=== PATIENT | male | born 1950 | race Caucasian/White ===

== ENCOUNTER 2016-09-15 13:08 | Emergency (ER) | payer MEDICARE, BC ==
[2016-09-15] MEDS ORDERED: SODIUM CHLORIDE 0.9% 1,000 ML IV STA (13:26)
[2016-09-15] MEDS ORDERED: RX INFO: IV CONTRAST WAS GIVEN 1 EACH MISC MISCELLANE PRN (13:26)
[2016-09-15] MEDS ORDERED: FAMOTIDINE 20 MG/2 ML VIAL IV STA (13:27)
[2016-09-15] MEDS ORDERED: diphenhydrAMINE 50 MG/ML 1 ML VIAL IVP STA (13:27)
[2016-09-15] MEDS ORDERED: methylPREDNISolone SOD SUCCI 125 MG/2 ML VIAL IV STA (13:27)
[2016-09-15 13:39] LABS: Basophils % (A) 0 %; CH 29.5; CHCM 32.7; Eosinophils # (A) 0.1 k/uL (0-0.7); Eosinophils % (A) 1 %; HCT 38.7 % (39.0-53.0); HDW 2.72; HGB 12.6 gm/dL (13.0-17.5); Luc # (Auto) 0.08; Luc % (Auto) 1; Lymphocytes # (A) 0.8 k/uL (1.0-4.8); Lymphocytes % (A) 8 %; MCH 29.6 pg (25.0-35.0); MCHC 32.7 g/dL (31.0-37.0); MCV 90.5 fL (80.0-100.0); Mean Platelet Volume 7.2; Monocytes # (A) 0.5 k/uL (0-1.0); Monocytes % (A) 5 %; Neutrophils # (A) 8.4 k/uL (1.3-7.7); Neutrophils % (A) 85 %; RBC 4.27 m/uL (4.30-5.90); WBC 9.9 k/uL (3.8-10.6); WBC (Perox) 9.92
[2016-09-15 13:43] LABS: Appearance,Urine Clear (Clear); Bilirubin,Urine Negative (Negative); Glucose,Urine (UA) 3+ (Negative); Ketones,Urine Negative (Negative); Leukocyte Esterase,Urine Negative (Negative); Nitrite,Urine Negative (Negative); Particle Count 279; Protein,Urine 1+ (Negative); RBC,Urine <1 /hpf (0-5); Specific Gravity,Urine 1.009 (1.001-1.035); Squamous Epithelial Cell,Urine <1 /hpf (0-4); UA Billing (MACRO vs. MICRO) MICRO; Urobilinogen,Urine <2.0 mg/dL (<2.0); WBC,Urine 1 /hpf (0-5)
--- NOTE | 2016-09-15 13:47 | ED ---
General Adult HPI - General Chief complaint: Abdominal Pain Stated complaint: Abdominal Pain Time Seen by Provider: 09/15/16 13:22 Source: patient, RN notes reviewed Mode of arrival: EMS Limitations: no limitations - History of Present Illness Initial comments: Patient is a pleasant 66-year-old male presenting to the emergency Department with abdominal discomfort. Patient has had mild symptoms for the past week. Patient has loss of appetite and mild nausea. Patient has not been eating much. Patient has had mild discomfort more so on the left side. Approximate one hour prior to arrival for get significantly worse. Discomfort is now tolerable following medication by EMS. No nausea vomiting. Patient was somewhat sweaty. No fevers. Discomfort was in the left abdomen but did radiate somewhat towards the back and up towards the chest. No chest discomfort at this time. Back discomfort is mild at this time. Abdominal discomfort is mild at this time. - Related Data Home Medications Medication Instructions Recorded Confirmed Allopurinol [Zyloprim] 100 mg PO DAILY 09/15/16 09/15/16 Ascorbic Acid [Vitamin C] 500 mg PO DAILY 09/15/16 09/15/16 Cholecalciferol [Vitamin D3] 1,000 unit PO BID 09/15/16 09/15/16 Docusaste 250mg 500 mg PO TID 09/15/16 09/15/16 Ferrous Sulfate [Feosol] 325 mg PO DAILY 09/15/16 09/15/16 HYDROcodone/APAP 10-325MG [[place] 1 tab PO HS 09/15/16 09/15/16 10-325] Lisinopril [Zestril] 10 mg PO DAILY 09/15/16 09/15/16 Magnesium Oxide [Mag-Ox] 500 mg PO DAILY 09/15/16 09/15/16 Metoprolol Tartrate [Lopressor] 100 mg PO BID 09/15/16 09/15/16 Niacin 500 mg PO BID 09/15/16 09/15/16 Pantoprazole [Protonix] 40 mg PO BID 09/15/16 09/15/16 Prazosin [Minipress] 2 mg PO HS 09/15/16 09/15/16 Sertraline [Zoloft] 150 mg PO DAILY 09/15/16 09/15/16 Simvastatin [Zocor] 20 mg PO HS 09/15/16 09/15/16 Sucralfate [Carafate] 1 gm PO DAILY 09/15/16 09/15/16 Vitamin B Complex 1 cap PO DAILY 09/15/16 09/15/16 amLODIPine [Norvasc] 10 mg PO DAILY 09/15/16 09/15/16 glipiZIDE [Glucotrol] 5 mg PO AC-BID 09/15/16 09/15/16 Allergies Allergy/AdvReac Type Severity Reaction Status Date / Time Iodinated Contrast Media - Allergy Rash/Hives Verified 09/15/16 13:41 Oral and Review of Systems ROS Statement: Those systems with pertinent positive or pertinent negative responses have been documented in the HPI. ROS Other: All systems not noted in ROS Statement are negative. Constitutional: Denies: fever, chills Eyes: Denies: eye pain ENT: Denies: ear pain Respiratory: Denies: cough Cardiovascular: Reports: chest pain Gastrointestinal: Reports: abdominal pain Genitourinary: Denies: dysuria Musculoskeletal: Reports: back pain Skin: Denies: rash Past Medical History Past Medical History: Diabetes Mellitus, Hypertension Additional Past Medical History / Comment(s): testicular cancer, glaucoma, peripheral neuropathy History of Any Multi-Drug Resistant Organisms: None Reported Additional Past Surgical History / Comment(s): left testicle removed, retroperitoneal lymph node resection x2, lymph node in left side of neck removed Past Psychological History: No Psychological Hx Reported Smoking Status: Current every day smoker Past Alcohol Use History: None Reported Past Drug Use History: None Reported General Exam Limitations: no limitations General appearance: alert, in no apparent distress Head exam: Present: atraumatic Eye exam: Present: normal appearance ENT exam: Present: normal oropharynx Neck exam: Present: normal inspection Respiratory exam: Present: normal lung sounds bilaterally. Absent: chest wall tenderness Cardiovascular Exam: Present: regular rate, normal rhythm Expanded Peripheral pulses: 2+: Radial (R), Radial (L), Dorsalis Pedis (R), Dorsalis Pedis (L) GI/Abdominal exam: Present: soft, tenderness (Left lower abdomen, mild), normal bowel sounds. Absent: distended, guarding, rebound, rigid, pulsatile mass Extremities exam: Present: normal inspection. Absent: pedal edema, calf tenderness Back exam: Present: CVA tenderness (L) (Mild tenderness below the left CVA) Neurological exam: Present: alert Psychiatric exam: Present: normal affect, normal mood Skin exam: Absent: rash Course Vital Signs 09/15/16 09/15/16 13:31 15:33 Temperature 96.9 F L 98.3 F Pulse Rate 62 59 L Respiratory 18 16 Rate Blood Pressure 186/90 159/74 O2 Sat by Pulse 100 100 Oximetry EKG Findings - EKG Comments: EKG Findings:: Sinus bradycardia, rate 53. Premature atrial complexes present. AL 196. QRS 98. QT 462. QTC 433. Normal axis. Normal QRS. Normal ST-T. Medical Decision Making - Medical Decision Making Patient reexamined and resting comfortably in bed. Patient still has discomfort however not as severe. Patient and family updated on results and concerns. Case was discussed in detail with Dr. Diaz, who will admit for a [facility] with surgical consult. Dr. Hector has been paged. - Lab Data Result diagrams: 09/15/16 13:24 09/15/16 13:24 Lab Results 09/15/16 09/15/16 09/15/16 Range/Units 13:24 13:24 13:24 WBC 9.9 (3.8-10.6) k/uL RBC 4.27 L (4.30-5.90) m/uL Hgb 12.6 L (13.0-17.5) gm/dL Hct 38.7 L (39.0-53.0) % MCV 90.5 (80.0-100.0) fL MCH 29.6 (25.0-35.0) pg MCHC 32.7 (31.0-37.0) g/dL RDW 15.0 (11.5-15.5) % Plt Count 156 (150-450) k/uL Neutrophils % 85 % Lymphocytes % 8 % Monocytes % 5 % Eosinophils % 1 % Basophils % 0 % Neutrophils # 8.4 H (1.3-7.7) k/uL Lymphocytes # 0.8 L (1.0-4.8) k/uL Monocytes # 0.5 (0-1.0) k/uL Eosinophils # 0.1 (0-0.7) k/uL Basophils # 0.0 (0-0.2) k/uL PT (9.0-12.0) sec INR (<1.1) APTT (22.0-30.0) sec Sodium 140 (137-145) mmol/L Potassium 4.8 (3.5-5.1) mmol/L Chloride 106 (98-107) mmol/L Carbon Dioxide 21 L (22-30) mmol/L Anion Gap 13 mmol/L BUN 26 H (9-20) mg/dL Creatinine 2.00 H (0.66-1.25) mg/dL Est GFR (MDRD) Af Amer 40 (>60 ml/min/1.73 sqM) Est GFR (MDRD) Non-Af 33 (>60 ml/min/1.73 sqM) Glucose 310 H (74-99) mg/dL Calcium 9.0 (8.4-10.2) mg/dL Total Bilirubin 0.4 (0.2-1.3) mg/dL AST 15 L (17-59) U/L ALT 23 (21-72) U/L Alkaline Phosphatase 85 (38-126) U/L Total Creatine Kinase 37 L (55-170) U/L CK-MB (CK-2) 0.4 (0.0-2.4) ng/mL CK-MB (CK-2) Rel Index 1.1 Troponin I <0.012 (0.000-0.034) ng/mL Total Protein 6.7 (6.3-8.2) g/dL Albumin 3.8 (3.5-5.0) g/dL Amylase 89 (30-110) U/L Lipase 194 (23-300) U/L Urine Color Urine Appearance (Clear) Urine pH (5.0-8.0) Ur Specific [place] (1.001-1.035) Urine Protein (Negative) Urine Glucose (UA) (Negative) Urine Ketones (Negative) Urine Blood (Negative) Urine Nitrate (Negative) Urine Bilirubin (Negative) Urine Urobilinogen (<2.0) mg/dL Ur Leukocyte Esterase (Negative) Urine RBC (0-5) /hpf Urine WBC (0-5) /hpf Ur Squamous Epith Cells (0-4) /hpf 09/15/16 09/15/16 Range/Units 13:24 13:24 WBC (3.8-10.6) k/uL RBC (4.30-5.90) m/uL Hgb (13.0-17.5) gm/dL Hct (39.0-53.0) % MCV (80.0-100.0) fL MCH (25.0-35.0) pg MCHC (31.0-37.0) g/dL RDW (11.5-15.5) % Plt Count (150-450) k/uL Neutrophils % % Lymphocytes % % Monocytes % % Eosinophils % % Basophils % % Neutrophils # (1.3-7.7) k/uL Lymphocytes # (1.0-4.8) k/uL Monocytes # (0-1.0) k/uL Eosinophils # (0-0.7) k/uL Basophils # (0-0.2) k/uL PT 10.1 (9.0-12.0) sec INR 1.0 (<1.1) APTT 22.6 (22.0-30.0) sec Sodium (137-145) mmol/L Potassium (3.5-5.1) mmol/L Chloride (98-107) mmol/L Carbon Dioxide (22-30) mmol/L Anion Gap mmol/L BUN (9-20) mg/dL Creatinine (0.66-1.25) mg/dL Est GFR (MDRD) Af Amer (>60 ml/min/1.73 sqM) Est GFR (MDRD) Non-Af (>60 ml/min/1.73 sqM) Glucose (74-99) mg/dL Calcium (8.4-10.2) mg/dL Total Bilirubin (0.2-1.3) mg/dL AST (17-59) U/L ALT (21-72) U/L Alkaline Phosphatase (38-126) U/L Total Creatine Kinase (55-170) U/L CK-MB (CK-2) (0.0-2.4) ng/mL CK-MB (CK-2) Rel Index Troponin I (0.000-0.034) ng/mL Total Protein (6.3-8.2) g/dL Albumin (3.5-5.0) g/dL Amylase (30-110) U/L Lipase (23-300) U/L Urine Color Light Yellow Urine Appearance Clear (Clear) Urine pH 7.0 (5.0-8.0) Ur Specific [place] 1.009 (1.001-1.035) Urine Protein 1+ H (Negative) Urine Glucose (UA) 3+ H (Negative) Urine Ketones Negative (Negative) Urine Blood Negative (Negative) Urine Nitrate Negative (Negative) Urine Bilirubin Negative (Negative) Urine Urobilinogen <2.0 (<2.0) mg/dL Ur Leukocyte Esterase Negative (Negative) Urine RBC <1 (0-5) /hpf Urine WBC 1 (0-5) /hpf Ur Squamous Epith Cells <1 (0-4) /hpf - Radiology Data Radiology results: image reviewed (Chest x-ray shows no acute process. Computed tomography scan abdomen and pelvis shows large. Aortic retroperitoneal mass up to 16 cm. Some initial soft tissue nodularity of to 8 cm.) Disposition Clinical Impression: Abdominal mass Disposition: ADMITTED IP TO THIS HOSP
[2016-09-15 13:50] LABS: Partial Thromboplastin Time 22.6 sec (22.0-30.0); Prothrombin Time 10.1 sec (9.0-12.0)
[2016-09-15 13:53] LABS: Potassium 4.8 mmol/L (3.5-5.1); Total Bilirubin 0.4 mg/dL (0.2-1.3); Total Protein 6.7 g/dL (6.3-8.2)
[2016-09-15 14:01] LABS: Creatine Kinase 37 U/L (55-170)
[2016-09-15 14:13] LABS: Creatine Kinase MB 0.4 ng/mL (0.0-2.4); Troponin I <0.012 ng/mL (0.000-0.034)
--- NOTE | 2016-09-15 15:05 | XR ---
EXAMINATION TYPE: XR chest 2V DATE OF EXAM: 09/15/2016 3:01 PM COMPARISON: NONE HISTORY: Shortness of breath TECHNIQUE: Frontal and lateral views of the chest are obtained. FINDINGS: Scattered senescent parenchymal changes noted. Hyperinflation compatible with COPD. No evidence for infiltrate. No evidence for atelectasis. Heart size is stable. Mediastinal structures are stable and grossly unremarkable. No evidence for hilar prominence. Degenerative changes dorsal spine. IMPRESSION: 1. No evidence for acute pulmonary disease.
--- NOTE | 2016-09-15 15:08 | CT ---
EXAMINATION TYPE: CT abdomen pelvis wo con DATE OF EXAM: 09/15/2016 2:37 PM COMPARISON: NONE HISTORY: 66-year-old male LUQ pain CT DLP: 1069 mGycm. Automated exposure control for dose reduction was used. TECHNIQUE: Contiguous axial scanning of the abdomen and pelvis without IV contrast. Coronal and sagit bronson reconstructions performed. FINDINGS: Heart is normal size without pericardial effusion. Coronary vessel calcifications are present and are remarkable for coronary artery disease. Some strandy atelectasis or scarring at the left base. Calcified granuloma in the right middle lobe. Noncontrast appearance of the liver, gallbladder, spleen with tiny anterior splenule, and pancreas gr ossly unremarkable. Scattered hypodense lesions within the right kidney measuring up to 1.5 cm are indeterminate. One of these lesions appears relatively hyperdense measuring 7 mm. There is marked mass effect onto the left kidney which is displaced towards the left and flattened ag ainst the spleen with its vascular pedicle stretched anteriorly. Hypodense lesions within the left ki dney are indeterminate measuring up to 1.9 cm. There is additional mass effect onto the pancreatic tail and gastric fundus/proximal body which are b oth displaced anteriorly. Multiple surgical clips along the retroperitoneum. Along the left para-aortic retroperitoneum, there is a very large heterogeneous mass containing some internal calcifications measuring up to 16.1 cm AP by 11.8 cm wide by 15.3 cm craniocaudal. Difficult to clearly delineate the fat plane with the adjacent psoas major muscle. Additional abnormal soft ti ssue nodularity within an aggregate dimension of 8.1 cm AP by 6.5 cm wide (coronal image 60) is noted along the superior aspect of the mass in the subphrenic region. No dilated small bowel, free fluid, or free air. No mesenteric or retroperitoneal lymphadenopathy see n. Mild to moderate stool burden with sigmoid diverticulosis but no evidence for acute diverticulitis. There are moderate atherosclerotic calcifications throughout the abdominal aorta. Bladder is urine distended. Asymmetric enlargement of the right seminal vesicle of questionable clini dax significance. Prostate mildly prominent at 4.6 cm wide. Prominent stool distending the rectum up to 7.4 cm. No abnormal fluid collection in the pelvis or pelvic lymphadenopathy. Bones: Degenerative changes mid to lower lumbar spine. No osseous destructive process seen. IMPRESSION: 1. 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 THIS CAUSES MASS EFFECT ONTO THE LEFT KIDNEY, PANCREATIC TAIL, A ND GASTRIC FUNDUS/PROXIMAL BODY AND STRETCHES THE LEFT RENAL VASCULAR PEDICLE ANTERIORLY. SOME ADDITI ONAL SOFT TISSUE NODULARITY MEASURING UP TO 8.1 CM SUPERIOR TO THE MASS LIKELY RELATES TO THE SAME MT OCESS. 2. SOME DIFFERENTIAL CONSIDERATIONS INCLUDE ADRENAL CORTICAL CARCINOMA, METASTATIC DISEASE, AND RETRO PERITONEAL SARCOMA. GIVEN THE PATIENT'S SURGICAL CLIPS ALONG THE RETROPERITONEUM, CORRELATE FOR ANY K NOWN DIAGNOSIS. 3. SIGMOID DIVERTICULOSIS WITHOUT ACUTE DIVERTICULITIS. 4. HYPODENSE LESIONS IN BOTH KIDNEYS MEASURE UP TO 1.9 CM AND ARE INDETERMINATE ON NONCONTRAST CT BUT PROBABLY REPRESENT CYSTS.
[2016-09-15] MEDS ORDERED: ONDANSETRON 4 MG/2 ML VIAL IVP PRN (15:52)
[2016-09-15] MEDS ORDERED: NALOXONE 0.4 MG/ML 1 ML VIAL IV PRN (15:52)
[2016-09-15] MEDS ORDERED: MORPHINE SULFATE 4 MG/ML SYRINGE IV PRN (15:52)
[2016-09-15] MEDS ORDERED: SODIUM CHLORIDE 0.9% 1,000 ML IV SCH (16:00)
--- NOTE | 2016-09-15 17:23 | ED ---
Medical Decision Making - Medical Decision Making Dr. Hector did come evaluate the patient in the emergency department and does recommend transfer to [facility]. Patient and family are aware of this and agreeable. Case was discussed in detail with Dr. Anders, who will accept transfer. - Lab Data Result diagrams: 09/15/16 13:24 09/15/16 13:24 Lab Results 09/15/16 09/15/16 09/15/16 Range/Units 13:24 13:24 13:24 WBC 9.9 (3.8-10.6) k/uL RBC 4.27 L (4.30-5.90) m/uL Hgb 12.6 L (13.0-17.5) gm/dL Hct 38.7 L (39.0-53.0) % MCV 90.5 (80.0-100.0) fL MCH 29.6 (25.0-35.0) pg MCHC 32.7 (31.0-37.0) g/dL RDW 15.0 (11.5-15.5) % Plt Count 156 (150-450) k/uL Neutrophils % 85 % Lymphocytes % 8 % Monocytes % 5 % Eosinophils % 1 % Basophils % 0 % Neutrophils # 8.4 H (1.3-7.7) k/uL Lymphocytes # 0.8 L (1.0-4.8) k/uL Monocytes # 0.5 (0-1.0) k/uL Eosinophils # 0.1 (0-0.7) k/uL Basophils # 0.0 (0-0.2) k/uL PT (9.0-12.0) sec INR (<1.1) APTT (22.0-30.0) sec Sodium 140 (137-145) mmol/L Potassium 4.8 (3.5-5.1) mmol/L Chloride 106 (98-107) mmol/L Carbon Dioxide 21 L (22-30) mmol/L Anion Gap 13 mmol/L BUN 26 H (9-20) mg/dL Creatinine 2.00 H (0.66-1.25) mg/dL Est GFR (MDRD) Af Amer 40 (>60 ml/min/1.73 sqM) Est GFR (MDRD) Non-Af 33 (>60 ml/min/1.73 sqM) Glucose 310 H (74-99) mg/dL Calcium 9.0 (8.4-10.2) mg/dL Total Bilirubin 0.4 (0.2-1.3) mg/dL AST 15 L (17-59) U/L ALT 23 (21-72) U/L Alkaline Phosphatase 85 (38-126) U/L Total Creatine Kinase 37 L (55-170) U/L CK-MB (CK-2) 0.4 (0.0-2.4) ng/mL CK-MB (CK-2) Rel Index 1.1 Troponin I <0.012 (0.000-0.034) ng/mL Total Protein 6.7 (6.3-8.2) g/dL Albumin 3.8 (3.5-5.0) g/dL Amylase 89 (30-110) U/L Lipase 194 (23-300) U/L Urine Color Urine Appearance (Clear) Urine pH (5.0-8.0) Ur Specific [place] (1.001-1.035) Urine Protein (Negative) Urine Glucose (UA) (Negative) Urine Ketones (Negative) Urine Blood (Negative) Urine Nitrate (Negative) Urine Bilirubin (Negative) Urine Urobilinogen (<2.0) mg/dL Ur Leukocyte Esterase (Negative) Urine RBC (0-5) /hpf Urine WBC (0-5) /hpf Ur Squamous Epith Cells (0-4) /hpf 09/15/16 09/15/16 Range/Units 13:24 13:24 WBC (3.8-10.6) k/uL RBC (4.30-5.90) m/uL Hgb (13.0-17.5) gm/dL Hct (39.0-53.0) % MCV (80.0-100.0) fL MCH (25.0-35.0) pg MCHC (31.0-37.0) g/dL RDW (11.5-15.5) % Plt Count (150-450) k/uL Neutrophils % % Lymphocytes % % Monocytes % % Eosinophils % % Basophils % % Neutrophils # (1.3-7.7) k/uL Lymphocytes # (1.0-4.8) k/uL Monocytes # (0-1.0) k/uL Eosinophils # (0-0.7) k/uL Basophils # (0-0.2) k/uL PT 10.1 (9.0-12.0) sec INR 1.0 (<1.1) APTT 22.6 (22.0-30.0) sec Sodium (137-145) mmol/L Potassium (3.5-5.1) mmol/L Chloride (98-107) mmol/L Carbon Dioxide (22-30) mmol/L Anion Gap mmol/L BUN (9-20) mg/dL Creatinine (0.66-1.25) mg/dL Est GFR (MDRD) Af Amer (>60 ml/min/1.73 sqM) Est GFR (MDRD) Non-Af (>60 ml/min/1.73 sqM) Glucose (74-99) mg/dL Calcium (8.4-10.2) mg/dL Total Bilirubin (0.2-1.3) mg/dL AST (17-59) U/L ALT (21-72) U/L Alkaline Phosphatase (38-126) U/L Total Creatine Kinase (55-170) U/L CK-MB (CK-2) (0.0-2.4) ng/mL CK-MB (CK-2) Rel Index Troponin I (0.000-0.034) ng/mL Total Protein (6.3-8.2) g/dL Albumin (3.5-5.0) g/dL Amylase (30-110) U/L Lipase (23-300) U/L Urine Color Light Yellow Urine Appearance Clear (Clear) Urine pH 7.0 (5.0-8.0) Ur Specific [place] 1.009 (1.001-1.035) Urine Protein 1+ H (Negative) Urine Glucose (UA) 3+ H (Negative) Urine Ketones Negative (Negative) Urine Blood Negative (Negative) Urine Nitrate Negative (Negative) Urine Bilirubin Negative (Negative) Urine Urobilinogen <2.0 (<2.0) mg/dL Ur Leukocyte Esterase Negative (Negative) Urine RBC <1 (0-5) /hpf Urine WBC 1 (0-5) /hpf Ur Squamous Epith Cells <1 (0-4) /hpf Disposition Clinical Impression: Abdominal mass Disposition: OTHER INSTITUTION NOT DEFINED - Out of Hospital Transfer - Req. Specs Out of Hospital Transfer - Requested Specifics: Other Emergency Center ( Surgical admission at [facility])
--- NOTE | 2016-09-15 19:01 | P.GSCN ---
History of Present Illness Consult date: 09/15/16 Reason for Consult: Abdominal mass History of present illness: Patient is a 66-year-old male who presented with chest discomfort with fevers and fevers and diaphoresis. Due to the shaking and chest discomfort he came to the emergency room believing that he had a heart attack. The pain was then shifted down to the abdomen the left flank was more severe and better by sitting up made worse by lying down. Pain medication helped as well. There was no nausea no vomiting or diarrhea no constipation and hematochezia hematemesis or melena. The patient is a diabetic and has had a previous history of 2 operations for recurrent testicular cancer. This included a retroperitoneal dissection and 1 sitting. Patient does not have any other paraneoplastic symptoms. Genitourinary complaints at this time. Review of Systems - Constitutional Reports anorexia, Reports chills, Reports fever, Reports malaise, Reports night sweats - EENT Ears, nose, mouth and throat: Denies dysphagia - Cardiovascular Reports chest pain, Reports palpitations, Denies edema, Denies shortness of breath - Respiratory Denies cough, Denies 7 - Gastrointestinal Reports as per HPI - Integumentary Denies rash, Denies unusual bruising - Psychiatric Denies anhedonia, Denies anxiety, Denies anxiety attacks - Endocrine Denies cold intolerance, Denies fatigue - Hematologic/Lymphatic Denies easy bleeding, Denies easy bruising Past Medical History Past Medical History: Diabetes Mellitus, Hypertension Additional Past Medical History / Comment(s): testicular cancer, glaucoma, peripheral neuropathy History of Any Multi-Drug Resistant Organisms: None Reported Additional Past Surgical History / Comment(s): left testicle removed, retroperitoneal lymph node resection x2, lymph node in left side of neck removed Past Psychological History: No Psychological Hx Reported Smoking Status: Current every day smoker Past Alcohol Use History: None Reported Past Drug Use History: None Reported Medications and Allergies Home Medications Medication Instructions Recorded Confirmed Type Allopurinol [Zyloprim] 100 mg PO DAILY 09/15/16 09/15/16 History Ascorbic Acid [Vitamin C] 500 mg PO DAILY 09/15/16 09/15/16 History Cholecalciferol [Vitamin D3] 1,000 unit PO BID 09/15/16 09/15/16 History Docusaste 250mg 500 mg PO TID 09/15/16 09/15/16 History Ferrous Sulfate [Feosol] 325 mg PO DAILY 09/15/16 09/15/16 History HYDROcodone/APAP 10-325MG [[place] 1 tab PO HS 09/15/16 09/15/16 History 10-325] Lisinopril [Zestril] 10 mg PO DAILY 09/15/16 09/15/16 History Magnesium Oxide [Mag-Ox] 500 mg PO DAILY 09/15/16 09/15/16 History Metoprolol Tartrate [Lopressor] 100 mg PO BID 09/15/16 09/15/16 History Niacin 500 mg PO BID 09/15/16 09/15/16 History Pantoprazole [Protonix] 40 mg PO BID 09/15/16 09/15/16 History Prazosin [Minipress] 2 mg PO HS 09/15/16 09/15/16 History Sertraline [Zoloft] 150 mg PO DAILY 09/15/16 09/15/16 History Simvastatin [Zocor] 20 mg PO HS 09/15/16 09/15/16 History Sucralfate [Carafate] 1 gm PO DAILY 09/15/16 09/15/16 History Vitamin B Complex 1 cap PO DAILY 09/15/16 09/15/16 History amLODIPine [Norvasc] 10 mg PO DAILY 09/15/16 09/15/16 History glipiZIDE [Glucotrol] 5 mg PO AC-BID 09/15/16 09/15/16 History Allergies Allergy/AdvReac Type Severity Reaction Status Date / Time Iodinated Contrast Media - Allergy Rash/Hives Verified 09/15/16 13:41 Oral and Surgical - Exam Vital Signs Temp Pulse Resp BP Pulse Ox 96.9 F L 62 18 186/90 100 09/15/16 13:31 09/15/16 13:31 09/15/16 13:31 09/15/16 13:31 09/15/16 13:31 - General well nourished - Eyes normal ocular movement, pale, no icteric - ENT normal pinna, normal nares - Neck no venous distension - Respiratory normal expansion, normal respiratory effort - Cardiovascular Rhythm: regular - Abdomen Abdomen: soft, non tender, surgical scars, no guarding, no rigid - Psychiatric oriented to time, oriented to person, oriented to place, speech is normal, memory intact Results - Labs 09/15/16 13:24 09/15/16 13:24 Abnormal Lab Results - Last 24 Hours (Table) 09/15/16 09/15/16 09/15/16 Range/Units 13:24 13:24 13:24 RBC 4.27 L (4.30-5.90) m/uL Hgb 12.6 L (13.0-17.5) gm/dL Hct 38.7 L (39.0-53.0) % Neutrophils # 8.4 H (1.3-7.7) k/uL Lymphocytes # 0.8 L (1.0-4.8) k/uL Carbon Dioxide 21 L (22-30) mmol/L BUN 26 H (9-20) mg/dL Creatinine 2.00 H (0.66-1.25) mg/dL Glucose 310 H (74-99) mg/dL AST 15 L (17-59) U/L Total Creatine Kinase 37 L (55-170) U/L Urine Protein (Negative) Urine Glucose (UA) (Negative) 09/15/16 Range/Units 13:24 RBC (4.30-5.90) m/uL Hgb (13.0-17.5) gm/dL Hct (39.0-53.0) % Neutrophils # (1.3-7.7) k/uL Lymphocytes # (1.0-4.8) k/uL Carbon Dioxide (22-30) mmol/L BUN (9-20) mg/dL Creatinine (0.66-1.25) mg/dL Glucose (74-99) mg/dL AST (17-59) U/L Total Creatine Kinase (55-170) U/L Urine Protein 1+ H (Negative) Urine Glucose (UA) 3+ H (Negative) Diabetes panel 09/15/16 Range/Units 13:24 Sodium 140 (137-145) mmol/L Potassium 4.8 (3.5-5.1) mmol/L Chloride 106 (98-107) mmol/L Carbon Dioxide 21 L (22-30) mmol/L BUN 26 H (9-20) mg/dL Creatinine 2.00 H (0.66-1.25) mg/dL Glucose 310 H (74-99) mg/dL Calcium 9.0 (8.4-10.2) mg/dL AST 15 L (17-59) U/L ALT 23 (21-72) U/L Alkaline Phosphatase 85 (38-126) U/L Total Protein 6.7 (6.3-8.2) g/dL Albumin 3.8 (3.5-5.0) g/dL Calcium panel 09/15/16 Range/Units 13:24 Calcium 9.0 (8.4-10.2) mg/dL Albumin 3.8 (3.5-5.0) g/dL Pituitary panel 09/15/16 Range/Units 13:24 Sodium 140 (137-145) mmol/L Potassium 4.8 (3.5-5.1) mmol/L Chloride 106 (98-107) mmol/L Carbon Dioxide 21 L (22-30) mmol/L BUN 26 H (9-20) mg/dL Creatinine 2.00 H (0.66-1.25) mg/dL Glucose 310 H (74-99) mg/dL Calcium 9.0 (8.4-10.2) mg/dL Adrenal panel 09/15/16 Range/Units 13:24 Sodium 140 (137-145) mmol/L Potassium 4.8 (3.5-5.1) mmol/L Chloride 106 (98-107) mmol/L Carbon Dioxide 21 L (22-30) mmol/L BUN 26 H (9-20) mg/dL Creatinine 2.00 H (0.66-1.25) mg/dL Glucose 310 H (74-99) mg/dL Calcium 9.0 (8.4-10.2) mg/dL Total Bilirubin 0.4 (0.2-1.3) mg/dL AST 15 L (17-59) U/L ALT 23 (21-72) U/L Alkaline Phosphatase 85 (38-126) U/L Total Protein 6.7 (6.3-8.2) g/dL Albumin 3.8 (3.5-5.0) g/dL - Imaging Additional studies: Computed tomography scan of the abdomen and the pelvis revealed a large paravertebral mass which was causing pressure symptoms on the kidneys as well as the pancreas. It lies between the vena cava and the left kidney stretching the patient will anterior to it. Assessment and Plan (1) Diabetes type 2, uncontrolled Status: Acute (2) Renal insufficiency Status: Acute (3) History of testicular cancer Status: Acute Plan: Patient is a very pleasant gentleman who has had his. He's had 2 previous surgeries including retroperitoneal sections. He has been symptom-free for a long time. He presented today with abdominal pain. Along with that his blood sugars were elevated at 300 and he has mild renal insufficiency with creatinine elevated at 2. Probably related to dehydration alone. On the patient's primary problem is pain in the left flank. Is explained by the presence of this large mass. Differential for this included adrenal cortical carcinoma, recurrence of the previous testicular cancer, and the retroperitoneal sarcoma. This is very large and due to the significant symptoms requires urgent evaluation. I do not perform this kind of surgery for evaluation. I recommended the patient be transferred to a tertiary care center where urological oncology and surgical oncology to evaluate the patient for possible removal of the retroperitoneal mass. The patient understands not had a detailed discussion with the patient and the son. The patient she'll be transferred to [facility] in [place] for further evaluation thank you
[2016-09-15 19:04] VITALS: BP 170/87; PULSE 62; RESP 16; TEMP 98.5
[2016-09-16] MEDS ORDERED: PANTOPRAZOLE 40 MG/10 ML VIAL IV SCH (09:00)
== END 2016-09-15 19:15 | disposition other institution (70) ==
LOC: EC 13:08 → UNDOADMIN 15:52 → 5MS5E 15:52 → 5ONC 17:12 → EC 19:15
DX: R19.09 Other intra-abdominal and pelvic swelling, mass and lump (principal); K57.30 Diverticulosis of large intestine without perforation or abscess without bleeding; E11.65 Type 2 diabetes mellitus with hyperglycemia; N28.9 Disorder of kidney and ureter, unspecified; I10 Essential (primary) hypertension; G62.9 Polyneuropathy, unspecified; F17.200 Nicotine dependence, unspecified, uncomplicated; Z79.84 Long term (current) use of oral hypoglycemic drugs; Z91.041 Radiographic dye allergy status; Z85.47 Personal history of malignant neoplasm of testis; Z79.899 Other long term (current) drug therapy
CPT/HCPCS: 99285; 96374; 96375 ×3; 96361 ×6; 36415; 93005; 80053; 82150; 82550; 82553; 83690; 84484; 85025; 85610; 85730; 81001; 71020; 74176; J2270; J1200; J2930

== ENCOUNTER → 2016-10-24 | Outpatient (CLI) | payer MEDICARE, BC ==
--- NOTE | 2016-10-24 15:29 | CT ---
EXAMINATION TYPE: CT chest wo con DATE OF EXAM: 10/24/2016 3:03 PM COMPARISON: NONE HISTORY: Patient has history of known abdominal liposarcoma. Patient is presurgical, looking for met s. CT DLP: 421.9 mGycm Automated exposure control for dose reduction was used. FINDINGS: Lungs: Subsegmental changes posteriorly are most typical of atelectasis. There are no sizable suspici ous pulmonary nodules. There is a subpleural nodule on image 42 in the right lower lobe superior segm ent measuring 2 mm. Calcified granuloma within the anterior segment of the right upper lobe is also n oted. Bleb is seen in the right lower lobe and there is mild basilar bronchiectasis. Subsegmental changes i nvolving the anterior segment of the left upper lobe laterally most typical of atelectasis. Osseous structures: There is evidence of multilevel degenerative disc disease and hypertrophic change s. No destructive or blastic changes seen. Mediastinum: Lack of contrast limits exam for adenopathy. Grossly no pathologic adenopathy suspected. Cardiomegaly and coronary artery calcification noted. There is atherosclerotic change aorta. Other: There is a large retroperitoneal soft tissue mass measuring 17 cm in AP dimension with interna l calcification likely corresponding to the patient's history of malignancy. IMPRESSION: 1. No diagnostic evidence of pulmonary metastasis. There is a subpleural nodule image 41 within the r ight lower lobe measuring 2 mm too small to characterize but likely postinflammatory. 2. Granuloma in the right upper lobe 3. Large retroperitoneal 17 cm mass. Provided history is liposarcoma. Given the patient's history of previous testicular cancer metastatic disease as well as retroperitoneal sarcoma or adrenal cortical carcinoma in the differential.
== END | disposition home or self-care (01) ==
LOC: RADCTMAIN 14:40
PROVIDERS: ATTEND Surgery
DX: C49.9 Malignant neoplasm of connective and soft tissue, unspecified (principal); J84.10 Pulmonary fibrosis, unspecified
CPT/HCPCS: 71250

== ENCOUNTER 2017-01-11 14:54 | Emergency (ER) | payer MEDICARE, BC ==
[2017-01-11 15:06] VITALS: RESP 18
--- NOTE | 2017-01-11 15:14 | ED ---
Abdominal Pain HPI - General Chief Complaint: Abdominal Pain Stated Complaint: Abd pain Time Seen by Provider: 01/11/17 15:04 Source: patient, EMS, RN notes reviewed Mode of arrival: EMS Limitations: no limitations - History of Present Illness Initial Comments: This a 66-year-old male presents emergency department via EMS chief complaint abdominal pain. Patient's been having increase abdominal plain no left lower quadrant. Patient states that he had a 6 pound lipocarcinoma tumor removed at [facility] in November. Patient called the surgeon advised him emergency department. Patient has not seen his surgeon for his increasing pain. Patient does admit to decreased appetite. Patient had some nausea no diarrhea no constipation. Patient states that he has not started any chemotherapy or radiation. Patient denies having a PET scan at this time. Patient's surgeon is Dr. Bay - Related Data Home Medications Medication Instructions Recorded Confirmed Allopurinol [Zyloprim] 100 mg PO DAILY 09/15/16 01/11/17 Ascorbic Acid [Vitamin C] 1,000 mg PO DAILY 09/15/16 01/11/17 Cholecalciferol [Vitamin D3] 1,000 unit PO BID 09/15/16 01/11/17 Docusaste 250mg 250 mg PO DAILY 09/15/16 01/11/17 Ferrous Sulfate [Feosol] 325 mg PO DAILY 09/15/16 01/11/17 Metoprolol Tartrate [Lopressor] 100 mg PO BID 09/15/16 01/11/17 Niacin 500 mg PO BID 09/15/16 01/11/17 Pantoprazole [Protonix] 40 mg PO DAILY 09/15/16 01/11/17 Prazosin [Minipress] 2 mg PO HS 09/15/16 01/11/17 Sertraline [Zoloft] 150 mg PO DAILY 09/15/16 01/11/17 Sucralfate [Carafate] 1 gm PO QID 09/15/16 01/11/17 Vitamin B Complex 1 cap PO DAILY 09/15/16 01/11/17 amLODIPine [Norvasc] 10 mg PO DAILY 09/15/16 01/11/17 glipiZIDE [Glucotrol] 5 mg PO AC-BID 09/15/16 01/11/17 HYDROcodone/APAP [[place] Elixir 10 ml PO Q4HR PRN 01/11/17 01/11/17 7.5-325Mg/15Ml] Insulin Glargine [Lantus] 25 unit SQ HS 01/11/17 01/11/17 Magnesium Oxide [Mag-Ox] 400 mg PO DAILY 01/11/17 01/11/17 Simvastatin [Zocor] 20 mg PO HS 01/11/17 01/11/17 Previous Rx's Medication Instructions Recorded oxyCODONE-APAP 7.5-325MG [Percocet 1 tab PO Q6HR PRN #30 tab 01/11/17 7.5-325 mg] Allergies Allergy/AdvReac Type Severity Reaction Status Date / Time Iodinated Contrast Media - Allergy Rash/Hives Verified 01/11/17 15:19 Oral and Review of Systems ROS Statement: Those systems with pertinent positive or pertinent negative responses have been documented in the HPI. ROS Other: All systems not noted in ROS Statement are negative. Past Medical History Past Medical History: Diabetes Mellitus, Hypertension Additional Past Medical History / Comment(s): testicular cancer, glaucoma, peripheral neuropathy, tumor on left kidney 12/01 - removed at [facility] ( liposarcoma) History of Any Multi-Drug Resistant Organisms: None Reported Additional Past Surgical History / Comment(s): left testicle removed, retroperitoneal lymph node resection x2, lymph node in left side of neck removed , left kidney removed Past Psychological History: No Psychological Hx Reported Smoking Status: Former smoker Past Alcohol Use History: None Reported Past Drug Use History: None Reported General Exam Limitations: no limitations General appearance: alert, in no apparent distress Head exam: Present: atraumatic, normocephalic, normal inspection Respiratory exam: Present: normal lung sounds bilaterally. Absent: respiratory distress, wheezes, rales, rhonchi, stridor Cardiovascular Exam: Present: regular rate, normal rhythm, normal heart sounds. Absent: systolic murmur, diastolic murmur, rubs, gallop, clicks GI/Abdominal exam: Present: soft, tenderness (Moderate left lower quadrant abdominal tenderness), normal bowel sounds. Absent: distended, guarding, rebound, rigid Back exam: Absent: CVA tenderness (R), CVA tenderness (L) Neurological exam: Present: alert, oriented X3, CN II-XII intact Skin exam: Present: warm, dry, intact, normal color. Absent: rash Course Vital Signs 01/11/17 15:02 Temperature 98 F Pulse Rate 91 Respiratory 18 Rate Blood Pressure 130/81 O2 Sat by Pulse 99 Oximetry Medical Decision Making - Medical Decision Making 58-year-old male presented to emergency room for increased pain status post surgery. There is no evidence of acute infection at this time. Patient has new acute findings including destruction of T12, L2 new mass findings. I did contact his surgeon Dr. Bay at [facility] states there is nothing emergent at this time though they will contact him for follow-up appointment. He did request that we give the patient analgesics at home. Patient also has appointment scheduled next week for oncologist. - Lab Data Result diagrams: 01/11/17 15:12 01/11/17 15:12 Lab Results 01/11/17 01/11/17 01/11/17 Range/Units 15:12 15:12 15:12 WBC 4.4 (3.8-10.6) k/uL RBC 3.80 L (4.30-5.90) m/uL Hgb 11.0 L (13.0-17.5) gm/dL Hct 32.6 L (39.0-53.0) % MCV 85.8 (80.0-100.0) fL MCH 28.8 (25.0-35.0) pg MCHC 33.6 (31.0-37.0) g/dL RDW 14.8 (11.5-15.5) % Plt Count 115 L (150-450) k/uL Neutrophils % 78 % Lymphocytes % 12 % Monocytes % 8 % Eosinophils % 1 % Basophils % 0 % Neutrophils # 3.4 (1.3-7.7) k/uL Lymphocytes # 0.5 L (1.0-4.8) k/uL Monocytes # 0.3 (0-1.0) k/uL Eosinophils # 0.1 (0-0.7) k/uL Basophils # 0.0 (0-0.2) k/uL Hypochromasia Slight PT (9.0-12.0) sec INR (<1.1) APTT (22.0-30.0) sec Sodium 139 (137-145) mmol/L Potassium 4.5 (3.5-5.1) mmol/L Chloride 107 (98-107) mmol/L Carbon Dioxide 21 L (22-30) mmol/L Anion Gap 11 mmol/L BUN 40 H (9-20) mg/dL Creatinine 2.02 H (0.66-1.25) mg/dL Est GFR (MDRD) Af Amer 40 (>60 ml/min/1.73 sqM) Est GFR (MDRD) Non-Af 33 (>60 ml/min/1.73 sqM) Glucose 173 H (74-99) mg/dL Plasma Lactic Acid Dez 1.1 (0.7-2.0) mmol/L Calcium 9.3 (8.4-10.2) mg/dL Total Bilirubin 0.6 (0.2-1.3) mg/dL AST 19 (17-59) U/L ALT 16 L (21-72) U/L Alkaline Phosphatase 77 (38-126) U/L Total Protein 7.4 (6.3-8.2) g/dL Albumin 3.8 (3.5-5.0) g/dL Amylase 60 (30-110) U/L Lipase 90 (23-300) U/L 01/11/17 Range/Units 15:12 WBC (3.8-10.6) k/uL RBC (4.30-5.90) m/uL Hgb (13.0-17.5) gm/dL Hct (39.0-53.0) % MCV (80.0-100.0) fL MCH (25.0-35.0) pg MCHC (31.0-37.0) g/dL RDW (11.5-15.5) % Plt Count (150-450) k/uL Neutrophils % % Lymphocytes % % Monocytes % % Eosinophils % % Basophils % % Neutrophils # (1.3-7.7) k/uL Lymphocytes # (1.0-4.8) k/uL Monocytes # (0-1.0) k/uL Eosinophils # (0-0.7) k/uL Basophils # (0-0.2) k/uL Hypochromasia PT 10.9 (9.0-12.0) sec INR 1.1 (<1.1) APTT 20.7 L (22.0-30.0) sec Sodium (137-145) mmol/L Potassium (3.5-5.1) mmol/L Chloride (98-107) mmol/L Carbon Dioxide (22-30) mmol/L Anion Gap mmol/L BUN (9-20) mg/dL Creatinine (0.66-1.25) mg/dL Est GFR (MDRD) Af Amer (>60 ml/min/1.73 sqM) Est GFR (MDRD) Non-Af (>60 ml/min/1.73 sqM) Glucose (74-99) mg/dL Plasma Lactic Acid Dez (0.7-2.0) mmol/L Calcium (8.4-10.2) mg/dL Total Bilirubin (0.2-1.3) mg/dL AST (17-59) U/L ALT (21-72) U/L Alkaline Phosphatase (38-126) U/L Total Protein (6.3-8.2) g/dL Albumin (3.5-5.0) g/dL Amylase (30-110) U/L Lipase (23-300) U/L - Radiology Data Radiology results: report reviewed, image reviewed CT of abdomen and pelvis shows new acute findings distractive T12 vertebral body mass, destruction of L2 with mass new large periportal lymph node and new additional adenopathy Disposition Clinical Impression: Cancer, metastatic to bone, Abdominal pain Disposition: HOME SELF-CARE Condition: Stable Instructions: Abdominal Pain (ED) Additional Instructions: Please follow up with your medical oncologist and cancer surgeon.Please return to the Emergency Department if symptoms worsen or any other concerns. Prescriptions: oxyCODONE-APAP 7.5-325MG [Percocet 7.5-325 mg] 1 tab PO Q6HR PRN #30 tab PRN Reason: Pain Referrals: Santino Aggarwal DO [Primary Care Provider] - 1-2 days Time of Disposition: 16:44
[2017-01-11 15:21] LABS: Basophils % (A) 0 %; CH 28.1; CHCM 32.8; Eosinophils # (A) 0.1 k/uL (0-0.7); Eosinophils % (A) 1 %; HCT 32.6 % (39.0-53.0); HDW 3.17; Hypochromasia Slight; Luc # (Auto) 0.05; Luc % (Auto) 1; Lymphocytes # (A) 0.5 k/uL (1.0-4.8); Lymphocytes % (A) 12 %; MCH 28.8 pg (25.0-35.0); MCHC 33.6 g/dL (31.0-37.0); MCV 85.8 fL (80.0-100.0); Mean Platelet Volume 8.4; Monocytes # (A) 0.3 k/uL (0-1.0); Monocytes % (A) 8 %; Neutrophils # (A) 3.4 k/uL (1.3-7.7); Neutrophils % (A) 78 %; RDW 14.8 % (11.5-15.5); WBC 4.4 k/uL (3.8-10.6); WBC (Perox) 4.38
[2017-01-11 15:34] LABS: Calcium 9.3 mg/dL (8.4-10.2); Potassium 4.5 mmol/L (3.5-5.1); Total Bilirubin 0.6 mg/dL (0.2-1.3); Total Protein 7.4 g/dL (6.3-8.2)
[2017-01-11 15:46] LABS: INR 1.1 (<1.1); Prothrombin Time 10.9 sec (9.0-12.0)
[2017-01-11 15:49] LABS: Partial Thromboplastin Time 20.7 sec (22.0-30.0)
--- NOTE | 2017-01-11 15:53 | CT ---
EXAMINATION TYPE: CT abdomen pelvis wo con DATE OF EXAM: 01/11/2017 3:36 PM COMPARISON: 09/15/2016 HISTORY: Left flank pain CT DLP: 413.0 mGycm FINDINGS: LUNG BASES: No evidence for nodule. No evidence for infiltrate. Small left basilar pleural effusion. LIVER/GB: The gallbladder is unremarkable. No space-occupying hepatic lesion. PANCREAS: No pancreatic mass identified. No inflammatory process seen. SPLEEN: There is increasing splenomegaly with craniocaudal measurement of about 18 cm versus 16.6 cm in the transverse dimension of 8.2 cm versus 4.1 cm previously. ADRENALS: No adrenal nodules identified. No evidence for thickening. KIDNEYS: The left kidney has been resected in the interval. Hypoattenuating lesions upper pole right kidney persists. Small hyperdense lesion may reflect small hemorrhagic cyst. No evidence for renal ma ss. No nephrolithiasis. No hydronephrosis. BOWEL: Appendix has a normal appearance. No evidence of bowel obstruction. No inflammatory process. S igmoid diverticulosis without diverticulitis. Lymph nodes: Lobulated left-sided subdiaphragmatic soft tissue persists which likely reflects adenopa thy. There is also new periportal lymph node mass measuring 5.5 x 5.2 cm. Retroperitoneal lymph node dissection. Priestly noted large left-sided retroperitoneal lymph node mass has been resected. Postsu rgical changes are present in this region.Gastrohepatic ligament adenopathy measuring up to 1.9 cm. Abdominal aorta: Atheromatous changes seen. No evidence for aneurysm. Genital organs: No significant abnormality. Other: There is a new T12 destructive soft tissue mass with left paraspinal component and epidural an d left neural foraminal extension. There is also involvement of the left spinous process and left jody ral arch. Infiltration into the spinal cord at this level is difficult to exclude. Soft tissue measur es at least 6 x 5.1 cm. Left-sided L2 mild loss of height and sclerosis may reflect additional sclero tic metastatic lesion. IMPRESSION: 1.Destructive T12 vertebral body mass with paraspinal, epidural and left foraminal extension. Infiltr ation into the spinal cord or conus medullaris is difficult to exclude. MRI correlation recommended. 2. Interval left nephrectomy and removal of large left retroperitoneal lymph node. Persistent and new adenopathy as discussed above. 3. Progressive splenomegaly. 4. Sclerosis of the left portion of L2 with mild loss of height.
[2017-01-11 16:52] VITALS: BP 156/73; PULSE 72; TEMP 99
[2017-01-11 16:59] LABS: Appearance,Urine Clear (Clear); Bilirubin,Urine Negative (Negative); Glucose,Urine (UA) Negative (Negative); Ketones,Urine Negative (Negative); Leukocyte Esterase,Urine Negative (Negative); Mucus,Urine Rare /hpf; Nitrite,Urine Negative (Negative); PH, Urine 7.5 (5.0-8.0); Particle Count 860; Protein,Urine 2+ (Negative); RBC,Urine 1 /hpf (0-5); Specific Gravity,Urine 1.018 (1.001-1.035); UA Billing (MACRO vs. MICRO) MICRO; Urobilinogen,Urine <2.0 mg/dL (<2.0); WBC,Urine 1 /hpf (0-5)
== END 2017-01-11 16:52 | disposition home or self-care (01) ==
LOC: EC 14:54
DX: C62.92 Malignant neoplasm of left testis, unspecified whether descended or undescended (principal); C79.51 Secondary malignant neoplasm of bone; R10.32 Left lower quadrant pain; E11.9 Type 2 diabetes mellitus without complications; I10 Essential (primary) hypertension; Z98.890 Other specified postprocedural states; Z91.041 Radiographic dye allergy status; Z87.891 Personal history of nicotine dependence; Z79.84 Long term (current) use of oral hypoglycemic drugs; Z79.899 Other long term (current) drug therapy
CPT/HCPCS: 36415; 74176; 80053; 81001; 82150; 83605; 83690; 85025; 85610; 85730; 99285

== ENCOUNTER 2017-03-08 09:21 | Inpatient (IN) | payer MEDICARE, BC ==
[2017-03-08] MEDS ORDERED: SODIUM CHLORIDE 0.9% 500 ML IV STA (09:27)
--- NOTE | 2017-03-08 09:30 | ED ---
General Adult HPI - General Stated complaint: Abnormal Labs Time Seen by Provider: 03/08/17 09:21 Source: patient, EMS, RN notes reviewed, old records reviewed Mode of arrival: EMS - History of Present Illness Initial comments: This is a 66-year-old male with a history of a left nephrectomy also recent lumbar surgery history of insulin-dependent diabetes and hypertension who is brought in for evaluation for reported elevated potassium level greater than 5. Patient states he has no chest pain palpitations shortness of breath he does have a back brace on at this time but states he has no new pain. He does state try to drink water. He has no other complaints this time. Also reported as a decreased renal function to his remaining kidney. - Related Data Home Medications Medication Instructions Recorded Confirmed Allopurinol [Zyloprim] 100 mg PO DAILY 09/15/16 03/08/17 Ascorbic Acid [Vitamin C] 1,000 mg PO DAILY 09/15/16 03/08/17 Cholecalciferol [Vitamin D3] 1,000 unit PO BID 09/15/16 03/08/17 Docusaste 250mg 250 mg PO DAILY 09/15/16 03/08/17 Ferrous Sulfate [Feosol] 325 mg PO DAILY 09/15/16 03/08/17 Metoprolol Tartrate [Lopressor] 100 mg PO BID 09/15/16 03/08/17 Niacin 500 mg PO BID-W/MEALS 09/15/16 03/08/17 Pantoprazole [Protonix] 40 mg PO DAILY 09/15/16 03/08/17 Sertraline [Zoloft] 150 mg PO DAILY 09/15/16 03/08/17 Vitamin B Complex 1 cap PO DAILY 09/15/16 03/08/17 amLODIPine [Norvasc] 10 mg PO DAILY 09/15/16 03/08/17 glipiZIDE [Glucotrol] 5 mg PO AC-BID 09/15/16 03/08/17 Insulin Glargine [Lantus] 50 unit SQ HS 01/11/17 03/08/17 Magnesium Oxide [Mag-Ox] 400 mg PO DAILY 01/11/17 03/08/17 HYDROcodone/APAP 10-325MG [[place] 1 - 2 tab PO Q4HR PRN 03/08/17 03/08/17 10-325] Methocarbamol [Robaxin] 750 mg PO TID 03/08/17 03/08/17 Ondansetron HCl [Zofran] 8 mg PO Q8H PRN 03/08/17 03/08/17 Prazosin HCl [Minipress] 2 mg PO HS 03/08/17 03/08/17 Zolpidem [Ambien] 5 mg PO HS PRN 03/08/17 03/08/17 oxyCODONE HCL [Oxyir] 5 - 10 mg PO Q4HR PRN 03/08/17 03/08/17 Allergies Allergy/AdvReac Type Severity Reaction Status Date / Time Iodinated Contrast Media - Allergy Rash/Hives Verified 03/08/17 09:38 Oral and Review of Systems ROS Statement: Those systems with pertinent positive or pertinent negative responses have been documented in the HPI. ROS Other: All systems not noted in ROS Statement are negative. 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) History of Any Multi-Drug Resistant Organisms: None Reported Additional Past Surgical History / Comment(s): left testicle removed, retroperitoneal lymph node resection x2, lymph node in left side of neck removed , left kidney removed Past Psychological History: No Psychological Hx Reported Smoking Status: Former smoker Past Alcohol Use History: None Reported Past Drug Use History: None Reported General Exam - General Exam Comments Initial Comments: This is a well-developed well-nourished awake alert oriented 3 male Limitations: physical limitation General appearance: alert, in no apparent distress Head exam: Present: atraumatic, normocephalic, normal inspection Eye exam: Present: normal appearance, PERRL, EOMI. Absent: scleral icterus, conjunctival injection, periorbital swelling ENT exam: Present: mucous membranes dry Neck exam: Present: normal inspection. Absent: tenderness, meningismus, lymphadenopathy Respiratory exam: Present: normal lung sounds bilaterally. Absent: respiratory distress, wheezes, rales, rhonchi, stridor Cardiovascular Exam: Present: regular rate, normal rhythm, normal heart sounds. Absent: systolic murmur, diastolic murmur, rubs, gallop, clicks GI/Abdominal exam: Present: soft, normal bowel sounds. Absent: distended, tenderness, guarding, rebound, rigid Extremities exam: Present: normal inspection, full ROM, normal capillary refill , pedal edema. Absent: tenderness, joint swelling, calf tenderness Back exam: Present: other (The patient does have a brace on his torso. No evidence of any infectious process.). Absent: full ROM Neurological exam: Present: alert, oriented X3, CN II-XII intact Psychiatric exam: Present: normal affect, normal mood Skin exam: Present: warm, dry, intact, normal color. Absent: rash Course Vital Signs 03/08/17 03/08/17 03/08/17 09:27 10:00 10:40 Temperature 96.9 F L Pulse Rate 91 89 91 Respiratory 18 18 Rate Blood Pressure 87/58 116/62 O2 Sat by Pulse 93 L 96 Oximetry 03/08/17 03/08/17 10:45 10:51 Temperature Pulse Rate 72 97 Respiratory 18 Rate Blood Pressure 127/58 O2 Sat by Pulse 100 Oximetry - Reevaluation(s) Reevaluation #1: 03/08/17 10:39 I did reevaluate the patient is resting comfortably. Reevaluation #2: 03/08/17 10:42 I did compare today's EKG was a previous one dated 09/15/16 there is some morphological changes. EKG Findings - EKG Results: EKG: interpreted by JUAN J, sinus rhythm (Sinus rhythm a rate of 80 [place] interval 190 QRS duration 84 daily since QTC of 342/416 low-voltage QRS and nonspecific inferior and anterior lateral changes.) Medical Decision Making - Medical Decision Making I did discuss findings with patient family. Patient will be admitted for evaluation by nephrology. - Lab Data Result diagrams: 03/08/17 09:44 03/08/17 09:44 Lab Results 03/08/17 03/08/17 Range/Units 09:44 09:44 WBC 6.7 (3.8-10.6) k/uL RBC 3.55 L (4.30-5.90) m/uL Hgb 10.3 L (13.0-17.5) gm/dL Hct 32.5 L (39.0-53.0) % MCV 91.6 D (80.0-100.0) fL MCH 29.2 (25.0-35.0) pg MCHC 31.8 (31.0-37.0) g/dL RDW 17.2 H (11.5-15.5) % Plt Count 140 L (150-450) k/uL Neutrophils % 84 % Lymphocytes % 9 % Monocytes % 5 % Eosinophils % 1 % Basophils % 0 % Neutrophils # 5.6 (1.3-7.7) k/uL Lymphocytes # 0.6 L (1.0-4.8) k/uL Monocytes # 0.4 (0-1.0) k/uL Eosinophils # 0.1 (0-0.7) k/uL Basophils # 0.0 (0-0.2) k/uL Hypochromasia Marked Anisocytosis Slight Sodium 131 L (137-145) mmol/L Potassium 6.4 H* (3.5-5.1) mmol/L Chloride 103 (98-107) mmol/L Carbon Dioxide 19 L (22-30) mmol/L Anion Gap 9 mmol/L BUN 86 H* (9-20) mg/dL Creatinine 3.17 H (0.66-1.25) mg/dL Est GFR (MDRD) Af Amer 24 (>60 ml/min/1.73 sqM) Est GFR (MDRD) Non-Af 20 (>60 ml/min/1.73 sqM) Glucose 115 H (74-99) mg/dL Calcium 12.4 H (8.4-10.2) mg/dL Magnesium 3.1 H (1.6-2.3) mg/dL Total Bilirubin 0.7 (0.2-1.3) mg/dL AST 40 (17-59) U/L ALT 29 (21-72) U/L Alkaline Phosphatase 163 H (38-126) U/L Total Protein 5.9 L (6.3-8.2) g/dL Albumin 3.0 L (3.5-5.0) g/dL Critical Care Time Critical Care Time: Yes Critical Care Time: 32 minutes of critical care time which includes initial presentation with monitoring of the EMS run and discussed with paramedics. History physical labs and x-rays review of old charting. Discussion with the patient family and several occasions regarding the findings. Discussed with the admitting physician admission orders and documentation of the above. Disposition Clinical Impression: Acute renal failure (ARF), Hyperkalemia, Dehydration Disposition: ADMITTED IP TO THIS [facility] Condition: Serious Referrals: Santino Aggarwal DO [Primary Care Provider] - 1-2 days Decision Time: 10:30
[2017-03-08] MEDS: SODIUM CHLORIDE 0.9% 1,000 ML IV STA ×2 (09:59→11:37)
[2017-03-08 10:08] LABS: Anisocytosis Slight; Basophils % (A) 0 %; CH 27.7; CHCM 30.4; Eosinophils # (A) 0.1 k/uL (0-0.7); Eosinophils % (A) 1 %; HCT 32.5 % (39.0-53.0); HDW 3.09; HGB 10.3 gm/dL (13.0-17.5); Hypochromasia Marked; Luc # (Auto) 0.08; Luc % (Auto) 1; Lymphocytes # (A) 0.6 k/uL (1.0-4.8); Lymphocytes % (A) 9 %; MCH 29.2 pg (25.0-35.0); MCHC 31.8 g/dL (31.0-37.0); Mean Platelet Volume 8.3; Monocytes # (A) 0.4 k/uL (0-1.0); Monocytes % (A) 5 %; Neutrophils # (A) 5.6 k/uL (1.3-7.7); Neutrophils % (A) 84 %; RBC 3.55 m/uL (4.30-5.90); RDW 17.2 % (11.5-15.5); WBC 6.7 k/uL (3.8-10.6); WBC (Perox) 6.86
[2017-03-08 10:10] LABS: Calcium 12.4 mg/dL (8.4-10.2); MCV 91.6 fL (80.0-100.0); Magnesium 3.1 mg/dL (1.6-2.3); Total Bilirubin 0.7 mg/dL (0.2-1.3); Total Protein 5.9 g/dL (6.3-8.2)
[2017-03-08 10:17] LABS: Potassium 6.4 mmol/L (3.5-5.1)
[2017-03-08] MEDS ORDERED: SODIUM CHLORIDE 0.9% 1,000 ML IV STA ×2 (10:22→11:38)
[2017-03-08] MEDS ORDERED: FUROSEMIDE 10 MG/ML 4 ML VIAL IV STA (10:22)
[2017-03-08] MEDS ORDERED: ALBUTEROL NEBULIZED 2.5 MG/3 ML INHALATION STA (10:23)
[2017-03-08] MEDS ORDERED: DEXTROSE 50%-WATER 50 ML SYRINGE IVP STA (10:45)
[2017-03-08] MEDS ORDERED: INSULIN REGULAR 100 UNIT/ML VIAL IV ONE (10:45)
[2017-03-08] MEDS ORDERED: NALOXONE 0.4 MG/ML 1 ML VIAL IV PRN (10:59)
[2017-03-08 11:15] LABS: Creatine Kinase MB 1.4 ng/mL (0.0-2.4); Troponin I 0.017 ng/mL (0.000-0.034)
[2017-03-08] MEDS ORDERED: SODIUM CHLORIDE 0.9% 1,000 ML IV SCH (11:15)
[2017-03-08] MEDS ORDERED: ONDANSETRON 4 MG TAB PO PRN (11:15)
[2017-03-08] MEDS ORDERED: ZOLPIDEM 5 MG TAB PO PRN (11:15)
[2017-03-08] MEDS ORDERED: SODIUM POLYSTYRENE SULFONATE 15 GM/60 ML BOTTLE PO ONE (11:30)
[2017-03-08] MEDS: HYDROcodone/APAP 10-325MG 1 EACH TAB PO PRN ×3 (11:36→21:50)
[2017-03-08] MEDS ORDERED: HYDROmorphone 1 MG/ML 1 ML SYRINGE IVP STA (11:40)
[2017-03-08] MEDS ORDERED: SODIUM BICARB 8.4% 50 ML SYR (1 MEQ/ML) IV ONE (11:45)
[2017-03-08] MEDS ORDERED: IPRATROPIUM-ALBUTEROL 3 ML NEB INHALATION SCH ×2 (12:00→20:00)
[2017-03-08 12:49] LABS: Glucose,Whole Blood 103 mg/dL (75-99)
[2017-03-08] MEDS ORDERED: IPRATROPIUM-ALBUTEROL 3 ML NEB INHALATION PRN (13:56)
[2017-03-08 14:27] LABS: Calcium 12.1 mg/dL (8.4-10.2); Potassium 5.2 mmol/L (3.5-5.1); Uric Acid 10.3 mg/dL (3.5-8.5)
[2017-03-08] MEDS: NIACIN TR 500 MG CAPSULE.ER PO SCH (16:26)
[2017-03-08] MEDS: HEPARIN SODIUM,PORCINE 5,000 UNIT/ML 1 ML VIAL SQ SCH (16:26)
[2017-03-08 17:10] LABS: Glucose,Whole Blood 126 mg/dL (75-99)
--- NOTE | 2017-03-08 17:26 | P.HPIM ---
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 Patient was thereafter supposed to undergo radiation therapy and possibly chemotherapy per his oncologist at [facility] however a MRI was done which showed significant lumbar encroaching tumor. Patient thereafter underwent another surgical resection with placement of prosthesis of his lumbar spine. Patient at baseline is only able to move his legs however has difficulty ambulating without the help wheelchair. Does have control of his bowel or bladder Patient went to his doctor 24 hours prior to the admission had labs done which showed significant increase of his creatinine from a baseline of 1.3. Patient' s physician called or night and asked him to go to the emergency room for further treatment Patient has not had any radiation or chemotherapy at has had bulky tumors and has undergone 2 surgical resections Patient states that his oral intake has been at normal denies having headaches blurry vision recent acute illnesses chest pain difficulty breathing. Patient does have some abdominal discomfort which is chronic No change in bowel habits. 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 History of Any Multi-Drug Resistant Organisms: None Reported Past Surgical History: Appendectomy Additional Past Surgical History / Comment(s): 30 yrs ago-left orchiectomy and retroperitoneal lymph node resection x2 and lymph node in left side of neck removed, 12/01/16 left kidney removed (liposarcoma) at [facility], 02/09/17 back surgery for cancerous tumor-has fusion and screws-done at [facility], 30 yrs ago mediport and then removed, colonoscopies, Past Anesthesia/Blood Transfusion Reactions: No Reported Reaction Additional Past Anesthesia/Blood Transfusion Reaction / Comment(s): Pt has had numerous blood transfusions without reaction. Smoking Status: Light tobacco smoker - Past Family History Father Family Medical History: Renal Disease Additional Family Medical History / Comment(s): Father developed kidney disease after he took someone elses blood pressure medication-he at the age of 76yrs. Mother Family Medical History: Cancer, Coronary Artery Disease (CAD) Additional Family Medical History / Comment(s): Mother in her 80's. Medications and Allergies Home Medications Medication Instructions Recorded Confirmed Type Allopurinol [Zyloprim] 100 mg PO DAILY 09/15/16 03/08/17 History Ascorbic Acid [Vitamin C] 1,000 mg PO DAILY 09/15/16 03/08/17 History Cholecalciferol [Vitamin D3] 1,000 unit PO BID 09/15/16 03/08/17 History Docusaste 250mg 250 mg PO DAILY 09/15/16 03/08/17 History Ferrous Sulfate [Feosol] 325 mg PO DAILY 09/15/16 03/08/17 History Metoprolol Tartrate [Lopressor] 100 mg PO BID 09/15/16 03/08/17 History Niacin 500 mg PO BID-W/MEALS 09/15/16 03/08/17 History Pantoprazole [Protonix] 40 mg PO DAILY 09/15/16 03/08/17 History Sertraline [Zoloft] 150 mg PO DAILY 09/15/16 03/08/17 History Vitamin B Complex 1 cap PO DAILY 09/15/16 03/08/17 History amLODIPine [Norvasc] 10 mg PO DAILY 09/15/16 03/08/17 History glipiZIDE [Glucotrol] 5 mg PO AC-BID 09/15/16 03/08/17 History Insulin Glargine [Lantus] 50 unit SQ HS 01/11/17 03/08/17 History Magnesium Oxide [Mag-Ox] 400 mg PO DAILY 01/11/17 03/08/17 History HYDROcodone/APAP 10-325MG [[place] 1 - 2 tab PO Q4HR PRN 03/08/17 03/08/17 History 10-325] Methocarbamol [Robaxin] 750 mg PO TID 03/08/17 03/08/17 History Ondansetron HCl [Zofran] 8 mg PO Q8H PRN 03/08/17 03/08/17 History Prazosin HCl [Minipress] 2 mg PO HS 03/08/17 03/08/17 History Zolpidem [Ambien] 5 mg PO HS PRN 03/08/17 03/08/17 History oxyCODONE HCL [Oxyir] 5 - 10 mg PO Q4HR PRN 03/08/17 03/08/17 History Allergies Allergy/AdvReac Type Severity Reaction Status Date / Time Iodinated Contrast Media - Allergy Rash/Hives Verified 03/08/17 09:38 Oral and Physical Exam Vitals: Vital Signs Temp Pulse Pulse Resp BP BP Pulse Ox 03/08/17 13:50 92 03/08/17 13:43 92 03/08/17 12:09 96.8 F L 99 18 110/67 96 03/08/17 12:00 96.1 F L 98 18 94/63 98 03/08/17 10:51 97 03/08/17 10:45 72 18 127/58 100 03/08/17 10:40 91 03/08/17 10:00 89 18 116/62 96 03/08/17 09:27 96.9 F L 91 18 87/58 93 L Intake and Output 03/08/17 03/08/17 03/08/17 06:59 14:59 22:59 Intake Total 120 Output Total 100 Balance 20 Intake: Oral 120 Output: Urine 100 Uretheral (Ross) 100 Other: Voiding Method Indwelling Catheter Indwelling Catheter Weight 86.183 kg Patient Weight 03/09/17 06:59 Weight 86.183 kg Gen appearance oriented 3 does not appear to be in distress head is atraumatic normocephalic pupils equal round reactive Cognition Neck is supple no JVD Lungs good air movement clear to auscultation no rhonchi wheezing or crackles Heart S1-S2 heard regular rate and rhythm no murmurs appreciated Abdomen a midline incision is noted slightly distended no organomegaly is appreciated Lower extremities no edema noted A Ross catheter is in place Neuro no focal motor or sensory deficits noted Results CBC & Chem 7: 03/08/17 09:44 03/08/17 13:52 Labs: Abnormal Lab Results - Last 24 Hours (Table) 03/08/17 03/08/17 03/08/17 Range/Units 09:44 09:44 09:44 RBC 3.55 L (4.30-5.90) m/uL Hgb 10.3 L (13.0-17.5) gm/dL Hct 32.5 L (39.0-53.0) % RDW 17.2 H (11.5-15.5) % Plt Count 140 L (150-450) k/uL Lymphocytes # 0.6 L (1.0-4.8) k/uL Sodium 131 L (137-145) mmol/L Potassium 6.4 H* (3.5-5.1) mmol/L Carbon Dioxide 19 L (22-30) mmol/L BUN 86 H* (9-20) mg/dL Creatinine 3.17 H (0.66-1.25) mg/dL Glucose 115 H (74-99) mg/dL POC Glucose (mg/dL) (75-99) mg/dL Uric Acid (3.5-8.5) mg/dL Calcium 12.4 H (8.4-10.2) mg/dL Magnesium 3.1 H (1.6-2.3) mg/dL Alkaline Phosphatase 163 H (38-126) U/L Total Creatine Kinase 41 L (55-170) U/L Total Protein 5.9 L (6.3-8.2) g/dL Albumin 3.0 L (3.5-5.0) g/dL 03/08/17 03/08/17 03/08/17 Range/Units 12:29 13:52 16:46 RBC (4.30-5.90) m/uL Hgb (13.0-17.5) gm/dL Hct (39.0-53.0) % RDW (11.5-15.5) % Plt Count (150-450) k/uL Lymphocytes # (1.0-4.8) k/uL Sodium 134 L (137-145) mmol/L Potassium 5.2 H (3.5-5.1) mmol/L Carbon Dioxide 20 L (22-30) mmol/L BUN 81 H* (9-20) mg/dL Creatinine 3.21 H (0.66-1.25) mg/dL Glucose 73 L (74-99) mg/dL POC Glucose (mg/dL) 103 H 126 H (75-99) mg/dL Uric Acid 10.3 H (3.5-8.5) mg/dL Calcium 12.1 H (8.4-10.2) mg/dL Magnesium (1.6-2.3) mg/dL Alkaline Phosphatase (38-126) U/L Total Creatine Kinase (55-170) U/L Total Protein (6.3-8.2) g/dL Albumin (3.5-5.0) g/dL Thrombosis Risk Factor Assmnt - Choose All That Apply Any of the Below Risk Factors Present?: Yes Other Risk Factors: Yes Each Risk Factor Represents 2 Points: Age 61-74 years, Malignancy Other congenital or acquired thrombophilia - If yes, enter type in comment: No Thrombosis Risk Factor Assessment Total Risk Factor Score: 4 Thrombosis Risk Factor Assessment Level: Moderate Risk Assessment and Plan Plan: #1 acute on chronic kidney disease Baseline creatinine 1.3 etiology being prerenal concern with hyperuricemia and tumor lysis as patient has had bulky tumors #2 iron deficiency anemia #3 thrombocytopenia #4:Sarcoma #5 peripheral neuropathy #6 diabetes mellitus type 2 #7 hypertension #8 Dys lipidemia #9 history of gout #10 hyperkalemia secondary to #1 Plan Patient be given IV fluid bolus patient has undergone treatment for hyperkalemia which is likely secondary to #1 Has been given sodium bicarbonate insulin dextrose and Kayexalate Patient does not show any signs of hyperkalemia on the electrocardiogram Patient's uric acid was done stat which showed a level of 10.5 a dose of rasburicase 6mg will be given we'll defer to her press maintainer tomorrow in regards to continuation Nephrotoxic drugs were held Oral antidiabetic medications that are renally excreted are held
[2017-03-08] MEDS ORDERED: glipiZIDE 5 MG TAB PO SCH (17:30)
[2017-03-08] MEDS ORDERED: RASBURICASE 6 MG in SODIUM CHLORIDE 0.9% 46 ML IV SCH (17:45)
[2017-03-08] MEDS ORDERED: RASBURICASE 6 MG in SODIUM CHLORIDE 0.9% 46 ML IV ONE (18:00)
[2017-03-08] MEDS: SODIUM CHLORIDE 0.9% 1,000 ML IV SCH ×2 (18:05→21:49)
[2017-03-08 18:49] LABS: Amorphous Sediment,Urine Few /hpf; Appearance,Urine Turbid (Clear); Bacteria,Urine Many /hpf; Bilirubin,Urine Negative (Negative); Glucose,Urine (UA) Negative (Negative); Ketones,Urine Negative (Negative); Leukocyte Esterase,Urine Large (Negative); Mucus,Urine Rare /hpf; Nitrite,Urine Negative (Negative); PH, Urine 5.5 (5.0-8.0); Particle Count 31109; Protein,Urine 2+ (Negative); RBC,Urine >182 /hpf (0-5); Specific Gravity,Urine 1.015 (1.001-1.035); UA Billing (MACRO vs. MICRO) MICRO; Urobilinogen,Urine <2.0 mg/dL (<2.0); WBC,Urine >182 /hpf (0-5)
[2017-03-08 21:03] LABS: Glucose,Whole Blood 78 mg/dL (75-99)
[2017-03-08] MEDS: IPRATROPIUM-ALBUTEROL 3 ML NEB INHALATION SCH (21:36)
[2017-03-08] MEDS: PRAZOSIN 1 MG CAP PO SCH (21:44)
[2017-03-08] MEDS: METOPROLOL TARTRATE 50 MG TAB PO SCH (21:44)
[2017-03-08] MEDS: INSULIN GLARGINE 100 UNIT/ML 10 ML VIAL SQ SCH (21:49)
[2017-03-09] MEDS ORDERED: SODIUM CHLORIDE 0.9% 500 ML IV ONE (00:02)
[2017-03-09] MEDS: HEPARIN SODIUM,PORCINE 5,000 UNIT/ML 1 ML VIAL SQ SCH ×3 (00:21→17:04)
[2017-03-09 02:38] LABS: Glucose,Whole Blood 64 mg/dL (75-99)
[2017-03-09 03:02] LABS: Glucose,Whole Blood 76 mg/dL (75-99)
[2017-03-09] MEDS: HYDROcodone/APAP 10-325MG 1 EACH TAB PO PRN ×3 (04:44→17:44)
[2017-03-09 05:48] LABS: Glucose,Whole Blood 61 mg/dL (75-99)
[2017-03-09 06:25] LABS: Anisocytosis Slight; Basophils % (A) 0 %; CH 27.2; CHCM 27.9; Eosinophils # (A) 0.1 k/uL (0-0.7); Eosinophils % (A) 1 %; HCT 34.1 % (39.0-53.0); HGB 10.2 gm/dL (13.0-17.5); Hypochromasia Marked; Luc # (Auto) 0.11; Luc % (Auto) 1; Lymphocytes # (A) 0.6 k/uL (1.0-4.8); Lymphocytes % (A) 8 %; MCH 29.3 pg (25.0-35.0); MCHC 29.9 g/dL (31.0-37.0); Macrocytosis Slight; Mean Platelet Volume 7.9; Monocytes # (A) 0.5 k/uL (0-1.0); Monocytes % (A) 7 %; Neutrophils # (A) 6.5 k/uL (1.3-7.7); Neutrophils % (A) 83 %; RBC 3.48 m/uL (4.30-5.90); RDW 17.3 % (11.5-15.5); WBC 7.8 k/uL (3.8-10.6); WBC (Perox) 8.02
[2017-03-09] MEDS: PANTOPRAZOLE 40 MG TABLET PO SCH (06:30)
[2017-03-09] MEDS: NIACIN TR 500 MG CAPSULE.ER PO SCH ×2 (06:30→17:16)
[2017-03-09 06:31] LABS: MCV 97.9 fL (80.0-100.0)
[2017-03-09 06:37] LABS: Glucose,Whole Blood 73 mg/dL (75-99)
[2017-03-09 06:53] LABS: Calcium 11.7 mg/dL (8.4-10.2); Potassium 5.2 mmol/L (3.5-5.1); Total Bilirubin 0.8 mg/dL (0.2-1.3); Total Protein 5.4 g/dL (6.3-8.2); Uric Acid 5.3 mg/dL (3.5-8.5)
[2017-03-09] MEDS: IPRATROPIUM-ALBUTEROL 3 ML NEB INHALATION SCH ×3 (07:54→20:30)
[2017-03-09 08:08] LABS: Glucose,Whole Blood 72 mg/dL (75-99)
[2017-03-09] MEDS: METOPROLOL TARTRATE 50 MG TAB PO SCH ×2 (08:40→22:35)
[2017-03-09] MEDS: SERTRALINE 50 MG TAB PO SCH (08:46)
[2017-03-09] MEDS: FERROUS SULFATE 325 MG TAB PO SCH (08:46)
[2017-03-09] MEDS ORDERED: ALLOPURINOL 100 MG TAB PO SCH (09:00)
[2017-03-09] MEDS ORDERED: amLODIPine 10 MG TAB PO SCH (09:00)
[2017-03-09] MEDS ORDERED: FUROSEMIDE 10 MG/ML 10 ML VIAL IV STA (09:59)
--- NOTE | 2017-03-09 10:02 | P.NPCON ---
History of Present Illness - Reason for Consult acute renal failure - History of Present Illness Reason for consultation: Acute kidney injury History of present illness: Patient is a 66-year-old male seen in renal consultation for acute kidney injury. Patient underwent left nephrectomy due to a sarcoma in November [address] [facility]. He also was noted to have a tumor in his spine which was also surgically resected. He has not undergone any chemotherapy or radiation so far. Patient's been mostly bedridden since the surgery. He is noted to have quite a bit of edema in his lower extremities. His oral intake has been poor but he does try to keep himself hydrated by drinking liquids. He's been dry heaving. No diarrhea. Denies chest pain or shortness of breath. No issues with urination. He has a Ross catheter in place and urine output was about 250 mL overnight. He's been quite hypotensive the systolic blood pressure in the 80s and 90s. He has received about 2 L of IV fluid resuscitation and is currently maintained on normal saline at 100 mL an hour. He also received a dose of rasburicase yesterday and his uric acid level is down to 5.3 today. Creatinine was 3.17 on admission and is up to 3.25 today. Vital signs are stable. General: The patient appeared well nourished and normally developed. HEENT: Head exam is unremarkable. Neck is without jugular venous distension. LUNGS: Lungs are clear to auscultation and percussion. Breath sounds decreased. HEART: Rate and Rhythm are regular. First and second heart sounds normal. No murmurs, rubs or gallops. ABDOMEN: Abdominal exam reveals normal bowel sounds. Non-tender and non- distended. No evidence of peritonitis. EXTREMITITES: 2+ edema. 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 History of Any Multi-Drug Resistant Organisms: None Reported Past Surgical History: Appendectomy Additional Past Surgical History / Comment(s): 30 yrs ago-left orchiectomy and retroperitoneal lymph node resection x2 and lymph node in left side of neck removed, 12/01/16 left kidney removed (liposarcoma) at [facility], 02/09/17 back surgery for cancerous tumor-has fusion and screws-done at [facility], 30 yrs ago mediport and then removed, colonoscopies, Past Anesthesia/Blood Transfusion Reactions: No Reported Reaction Additional Past Anesthesia/Blood Transfusion Reaction / Comment(s): Pt has had numerous blood transfusions without reaction. Smoking Status: Light tobacco smoker - Past Family History Father Family Medical History: Renal Disease Additional Family Medical History / Comment(s): Father developed kidney disease after he took someone elses blood pressure medication-he at the age of 76yrs. Mother Family Medical History: Cancer, Coronary Artery Disease (CAD) Additional Family Medical History / Comment(s): Mother in her 80's. Medications and Allergies Home Medications Medication Instructions Recorded Confirmed Type Allopurinol [Zyloprim] 100 mg PO DAILY 09/15/16 03/08/17 History Ascorbic Acid [Vitamin C] 1,000 mg PO DAILY 09/15/16 03/08/17 History Cholecalciferol [Vitamin D3] 1,000 unit PO BID 09/15/16 03/08/17 History Docusaste 250mg 250 mg PO DAILY 09/15/16 03/08/17 History Ferrous Sulfate [Feosol] 325 mg PO DAILY 09/15/16 03/08/17 History Metoprolol Tartrate [Lopressor] 100 mg PO BID 09/15/16 03/08/17 History Niacin 500 mg PO BID-W/MEALS 09/15/16 03/08/17 History Pantoprazole [Protonix] 40 mg PO DAILY 09/15/16 03/08/17 History Sertraline [Zoloft] 150 mg PO DAILY 09/15/16 03/08/17 History Vitamin B Complex 1 cap PO DAILY 09/15/16 03/08/17 History amLODIPine [Norvasc] 10 mg PO DAILY 09/15/16 03/08/17 History glipiZIDE [Glucotrol] 5 mg PO AC-BID 09/15/16 03/08/17 History Insulin Glargine [Lantus] 50 unit SQ HS 01/11/17 03/08/17 History Magnesium Oxide [Mag-Ox] 400 mg PO DAILY 01/11/17 03/08/17 History HYDROcodone/APAP 10-325MG [[place] 1 - 2 tab PO Q4HR PRN 03/08/17 03/08/17 History 10-325] Methocarbamol [Robaxin] 750 mg PO TID 03/08/17 03/08/17 History Ondansetron HCl [Zofran] 8 mg PO Q8H PRN 03/08/17 03/08/17 History Prazosin HCl [Minipress] 2 mg PO HS 03/08/17 03/08/17 History Zolpidem [Ambien] 5 mg PO HS PRN 03/08/17 03/08/17 History oxyCODONE HCL [Oxyir] 5 - 10 mg PO Q4HR PRN 03/08/17 03/08/17 History Allergies Allergy/AdvReac Type Severity Reaction Status Date / Time Iodinated Contrast Media - Allergy Rash/Hives Verified 03/08/17 09:38 Oral and Physical Exam Vitals: Vital Signs Temp Pulse Pulse Resp BP BP Pulse Ox 03/09/17 08:07 80 03/09/17 07:56 76 03/09/17 03:49 97.8 F 100 18 103/56 93 L 03/09/17 00:00 97.9 F 102 H 18 97/57 90 L 03/08/17 21:39 80 03/08/17 21:28 80 03/08/17 20:40 96.5 F L 90 18 81/55 97 03/08/17 18:00 101/64 03/08/17 16:00 90 16 92/56 95 03/08/17 13:50 92 03/08/17 13:43 92 03/08/17 12:09 96.8 F L 99 18 110/67 96 03/08/17 12:00 96.1 F L 98 18 94/63 98 03/08/17 10:51 97 03/08/17 10:45 72 18 127/58 100 03/08/17 10:40 91 03/08/17 10:00 89 18 116/62 96 Intake and Output 03/08/17 03/09/17 03/09/17 22:59 06:59 14:59 Intake Total 0 Output Total 200 125 Balance -200 -125 Intake: Oral 0 Output: Urine 200 125 Other: Voiding Method Indwelling Catheter Indwelling Catheter # Bowel Movements 1 Weight 90.5 kg Results - Lab Results Most recent lab results Calcium 11.7 mg/dL (8.4-10.2) H 03/09/17 05:42 Magnesium 3.1 mg/dL (1.6-2.3) H 03/08/17 09:44 03/09/17 05:42 03/09/17 05:42 Assessment and Plan Plan: Assessment: #1. Acute kidney injury secondary to ischemic ATN secondary to hypotension and poor oral intake. 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 Creatinine up to 3.25 today. #2. Hyperkalemia secondary to acute kidney injury and metabolic acidosis. Again, tumor lysis can be a contributor factor. #3. Metabolic acidosis secondary to acute kidney injury and IV fluids. #4. Sarcoma. #5. Status post left nephrectomy in November 2016. #6. Hypotension. Rule out adrenal insufficiency. #7. Hypercalcemia. This is likely due to intravascular volume depletion. Malignancy also a contributing factor. Improving. Plan: I will change the IV fluids to isotonic sodium bicarbonate drip to be run at 100 mL an hour. I will challenge him with Lasix 80 mg IV once today. Encourage oral intake. Check phosphorus level. Repeat uric acid level tomorrow. Check cortisol level. Start oral sodium bicarbonate supplementation. Pamidronate 60 mg IV once today. Avoid nephrotoxic agents and hypotensive episodes. Repeat electrolytes in the morning. I did discuss with the patient and his the potential need for renal replacement therapy if renal function continues to deteriorate. They understand and agree to proceed if needed. Thank you for the consultation. I will continue to follow the patient with you during his hospital stay.
[2017-03-09] MEDS ORDERED: SODIUM CHLORIDE 0.9% 250 ML with PAMIDRONATE 60 MG IV ONE ×2 (10:30)
[2017-03-09] MEDS: WATER FOR INJECTION, STERILE 1,000 ML with SODIUM ACETATE 150 MEQ IV SCH ×4 (11:11→23:04)
[2017-03-09] MEDS: SODIUM BICARBONATE TAB 650 MG TAB PO SCH ×2 (11:23→22:37)
[2017-03-09 12:11] LABS: Glucose,Whole Blood 58 mg/dL (75-99)
[2017-03-09 12:39] LABS: Glucose,Whole Blood 165 mg/dL (75-99)
[2017-03-09] MEDS ORDERED: LIDOCAINE 5% PATCH TOPICAL PRN (16:00)
[2017-03-09 16:34] LABS: Glucose,Whole Blood 84 mg/dL (75-99)
[2017-03-09] MEDS: LIDOCAINE 5% TOPICAL PRN (17:16)
[2017-03-09 20:35] LABS: Glucose,Whole Blood 46 mg/dL (75-99)
[2017-03-09 20:37] LABS: Glucose,Whole Blood 50 mg/dL (75-99)
[2017-03-09 21:07] LABS: Glucose,Whole Blood 49 mg/dL (75-99)
[2017-03-09 21:21] LABS: Glucose,Whole Blood 108 mg/dL (75-99)
[2017-03-09 22:08] LABS: Glucose,Whole Blood 103 mg/dL (75-99)
[2017-03-09] MEDS: PRAZOSIN 1 MG CAP PO SCH (22:35)
[2017-03-09] MEDS: INSULIN GLARGINE 100 UNIT/ML 10 ML VIAL SQ SCH (23:03)
[2017-03-10] MEDS: HEPARIN SODIUM,PORCINE 5,000 UNIT/ML 1 ML VIAL SQ SCH ×3 (01:31→17:16)
[2017-03-10 02:32] LABS: Glucose,Whole Blood 73 mg/dL (75-99)
[2017-03-10] MEDS: oxyCODONE-APAP 5-325MG 1 EACH TAB PO PRN ×2 (03:56→15:24)
[2017-03-10 06:44] LABS: Glucose,Whole Blood 72 mg/dL (75-99)
[2017-03-10] MEDS: WATER FOR INJECTION, STERILE 1,000 ML with SODIUM ACETATE 150 MEQ IV SCH ×2 (07:56)
[2017-03-10] MEDS: METOPROLOL TARTRATE 50 MG TAB PO SCH ×2 (07:57→20:21)
[2017-03-10] MEDS: NIACIN TR 500 MG CAPSULE.ER PO SCH ×2 (07:59→17:16)
[2017-03-10] MEDS: SERTRALINE 50 MG TAB PO SCH (07:59)
[2017-03-10] MEDS: PANTOPRAZOLE 40 MG TABLET PO SCH (07:59)
[2017-03-10] MEDS: SODIUM BICARBONATE TAB 650 MG TAB PO SCH ×2 (07:59→20:21)
[2017-03-10] MEDS: FERROUS SULFATE 325 MG TAB PO SCH (08:00)
[2017-03-10] MEDS: LIDOCAINE 5% TOPICAL PRN (08:03)
[2017-03-10] MEDS: IPRATROPIUM-ALBUTEROL 3 ML NEB INHALATION SCH ×3 (08:20→19:25)
[2017-03-10 08:37] LABS: Calcium 11.6 mg/dL (8.4-10.2); Magnesium 2.8 mg/dL (1.6-2.3); Potassium 4.9 mmol/L (3.5-5.1); Uric Acid 4.2 mg/dL (3.5-8.5)
[2017-03-10] MEDS ORDERED: WATER FOR INJECTION, STERILE 1,000 ML with SODIUM ACETATE 150 MEQ IV ONE ×2 (09:00)
--- NOTE | 2017-03-10 09:23 | P.PN ---
Subjective Patient is seen in follow-up for acute kidney injury. 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 From the records it appears his creatinine was near 1.3 after the surgery. It is noted to be 2 in January 2017. It was elevated at 3 this admission and is 3.36 today. The is present at bedside. She is very concerned about lower extremity edema. He is also noted to have significant scrotal edema. His oral intake is poor. No vomiting or diarrhea. Denies chest pain. Vital signs are stable. General: The patient appeared well nourished and normally developed. HEENT: Head exam is unremarkable. Neck is without jugular venous distension. LUNGS: Lungs are clear to auscultation and percussion. Breath sounds decreased. HEART: Rate and Rhythm are regular. First and second heart sounds normal. No murmurs, rubs or gallops. ABDOMEN: Abdominal exam reveals normal bowel sounds. Non-tender and non- distended. No evidence of peritonitis. EXTREMITITES: 2+ edema. Scrotal edema noted. Objective - Vital Signs Vital signs: Vital Signs Temp 97.3 F L 03/10/17 07:00 Pulse 82 03/10/17 08:32 Resp 14 03/10/17 08:32 BP 86/58 03/10/17 07:00 Pulse Ox 94 L 03/10/17 07:00 Intake & Output 03/09/17 03/10/17 03/10/17 18:59 06:59 18:59 Intake Total 420 420 Output Total 300 375 Balance 120 45 Weight 88.5 kg Intake: Oral 420 420 Output: Urine 300 375 Other: Voiding Method Indwelling Catheter Indwelling Catheter # Voids 1 - Labs CBC & Chem 7: 03/09/17 05:42 03/10/17 07:41 Labs: Abnormal Lab Results - Last 24 Hours (Table) 03/09/17 03/09/17 03/09/17 Range/Units 12:02 12:28 12:29 Sodium (137-145) mmol/L BUN (9-20) mg/dL Creatinine (0.66-1.25) mg/dL Glucose (74-99) mg/dL POC Glucose (mg/dL) 58 L 165 H (75-99) mg/dL Calcium (8.4-10.2) mg/dL Phosphorus 5.1 H (2.5-4.5) mg/dL Magnesium (1.6-2.3) mg/dL 03/09/17 03/09/17 03/09/17 Range/Units 20:34 20:36 20:56 Sodium (137-145) mmol/L BUN (9-20) mg/dL Creatinine (0.66-1.25) mg/dL Glucose (74-99) mg/dL POC Glucose (mg/dL) 46 L 50 L 49 L (75-99) mg/dL Calcium (8.4-10.2) mg/dL Phosphorus (2.5-4.5) mg/dL Magnesium (1.6-2.3) mg/dL 03/09/17 03/09/17 03/10/17 Range/Units 21:19 22:05 02:20 Sodium (137-145) mmol/L BUN (9-20) mg/dL Creatinine (0.66-1.25) mg/dL Glucose (74-99) mg/dL POC Glucose (mg/dL) 108 H 103 H 73 L (75-99) mg/dL Calcium (8.4-10.2) mg/dL Phosphorus (2.5-4.5) mg/dL Magnesium (1.6-2.3) mg/dL 03/10/17 03/10/17 Range/Units 06:42 07:41 Sodium 134 L (137-145) mmol/L BUN 86 H* (9-20) mg/dL Creatinine 3.36 H (0.66-1.25) mg/dL Glucose 45 L* (74-99) mg/dL POC Glucose (mg/dL) 72 L (75-99) mg/dL Calcium 11.6 H (8.4-10.2) mg/dL Phosphorus (2.5-4.5) mg/dL Magnesium 2.8 H (1.6-2.3) mg/dL Assessment and Plan Plan: Assessment: #1. Acute kidney injury secondary to ischemic ATN secondary to hypotension and poor oral intake. 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 Phosphorus also slightly elevated at 5.1. Creatinine up to 3.36 today. Urine output in the last 24 hours was 750 mL. #2. Hyperkalemia secondary to acute kidney injury and metabolic acidosis. Again, tumor lysis can be a contributor factor. Improved. #3. Metabolic acidosis secondary to acute kidney injury and IV fluids. Improved. #4. Sarcoma. #5. Status post left nephrectomy in November 2016. #6. Hypotension. Cortisol level normal. #7. Hypercalcemia. Improved. This is likely related to oral underlying malignancy. Status post 1 dose of pamidronate on March 09. #8. Volume overload. Plan: Hep-Lock IV fluids due to volume overload. Start Lasix drip at 10 mL an hour. Add midodrine 10 mg 3 times a day. Encourage oral intake. Continue oral sodium bicarbonate supplementation. Check PTH, vitamin D, and 125 dihydroxy vitamin D3. Check electrophoresis studies. Avoid nephrotoxic agents and hypotensive episodes. Repeat electrolytes in the morning. I did discuss with the patient and his the potential need for renal replacement therapy if renal function continues to deteriorate. They understand and agree to proceed if needed.
[2017-03-10 09:39] LABS: Glucose,Whole Blood 63 mg/dL (75-99)
[2017-03-10 10:33] LABS: Glucose,Whole Blood 63 mg/dL (75-99)
[2017-03-10 10:51] LABS: Glucose,Whole Blood 77 mg/dL (75-99)
[2017-03-10] MEDS: FUROSEMIDE 250 MG in SODIUM CHLORIDE 0.9% 225 ML IVP SCH (10:54)
[2017-03-10] MEDS: MIDODRINE 5 MG TAB PO SCH ×2 (11:42→17:16)
[2017-03-10 11:58] LABS: Glucose,Whole Blood 122 mg/dL (75-99)
[2017-03-10 17:21] LABS: Glucose,Whole Blood 100 mg/dL (75-99)
--- NOTE | 2017-03-10 17:30 | P.CONS ---
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 He had done very well until Sep. He had a sharp pain in his left side, he was seen here at [facility] and was sent to urgently to [facility] due to histoyr and size of mass in abd. Since that time pt had surgery at [facility] December 01 with abdominal mass and left kidney removed, there was positive margins/residual tumor so he was referred to radiation but, on imaging pt was noted to have large mass growing around spine so he had surgery again earlier this month to remove that mass, prevent cord compression and stabilize the spine. He is supposed to be seen at [facility] in the next 2 weeks for imaging and plan of care. states that over the last 2 days pt BLE has progressed and now he has severe scrotal and penile edema with difficulty urinating. Pt just had pain medicine so he is drowsy but he denied nausea, trouble swallowing, difficulty breathing or need to go to the bathroom. 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 History of Any Multi-Drug Resistant Organisms: None Reported Past Surgical History: Appendectomy Additional Past Surgical History / Comment(s): 30 yrs ago-left orchiectomy and retroperitoneal lymph node resection x2 and lymph node in left side of neck removed, 12/01/16 left kidney removed (liposarcoma) at [facility], 02/09/17 back surgery for cancerous tumor-has fusion and screws-done at [facility], 30 yrs ago mediport and then removed, colonoscopies, Past Anesthesia/Blood Transfusion Reactions: No Reported Reaction Additional Past Anesthesia/Blood Transfusion Reaction / Comm: Pt has had numerous blood transfusions without reaction. Smoking Status: Light tobacco smoker - Past Family History Father Family Medical History: Renal Disease Additional Family Medical History / Comment(s): Father developed kidney disease after he took someone elses blood pressure medication-he at the age of 76yrs. Mother Family Medical History: Cancer, Coronary Artery Disease (CAD) Additional Family Medical History / Comment(s): Mother in her 80's. Medications and Allergies Home Medications Medication Instructions Recorded Confirmed Type Allopurinol [Zyloprim] 100 mg PO DAILY 09/15/16 03/08/17 History Ascorbic Acid [Vitamin C] 1,000 mg PO DAILY 09/15/16 03/08/17 History Cholecalciferol [Vitamin D3] 1,000 unit PO BID 09/15/16 03/08/17 History Docusaste 250mg 250 mg PO DAILY 09/15/16 03/08/17 History Ferrous Sulfate [Feosol] 325 mg PO DAILY 09/15/16 03/08/17 History Metoprolol Tartrate [Lopressor] 100 mg PO BID 09/15/16 03/08/17 History Niacin 500 mg PO BID-W/MEALS 09/15/16 03/08/17 History Pantoprazole [Protonix] 40 mg PO DAILY 09/15/16 03/08/17 History Sertraline [Zoloft] 150 mg PO DAILY 09/15/16 03/08/17 History Vitamin B Complex 1 cap PO DAILY 09/15/16 03/08/17 History amLODIPine [Norvasc] 10 mg PO DAILY 09/15/16 03/08/17 History glipiZIDE [Glucotrol] 5 mg PO AC-BID 09/15/16 03/08/17 History Insulin Glargine [Lantus] 50 unit SQ HS 01/11/17 03/08/17 History Magnesium Oxide [Mag-Ox] 400 mg PO DAILY 01/11/17 03/08/17 History HYDROcodone/APAP 10-325MG [[place] 1 - 2 tab PO Q4HR PRN 03/08/17 03/08/17 History 10-325] Methocarbamol [Robaxin] 750 mg PO TID 03/08/17 03/08/17 History Ondansetron HCl [Zofran] 8 mg PO Q8H PRN 03/08/17 03/08/17 History Prazosin HCl [Minipress] 2 mg PO HS 03/08/17 03/08/17 History Zolpidem [Ambien] 5 mg PO HS PRN 03/08/17 03/08/17 History oxyCODONE HCL [Oxyir] 5 - 10 mg PO Q4HR PRN 03/08/17 03/08/17 History Allergies Allergy/AdvReac Type Severity Reaction Status Date / Time Iodinated Contrast Media - Allergy Rash/Hives Verified 03/08/17 09:38 Oral and Physical Exam Vitals: Vital Signs Temp Pulse Pulse Resp BP Pulse Ox 03/10/17 14:45 98 16 98/61 94 L 03/10/17 12:26 82 03/10/17 12:10 80 03/10/17 11:45 68 16 100/56 95 03/10/17 10:00 94 16 82/52 97 03/10/17 08:32 82 14 03/10/17 08:22 82 14 03/10/17 08:00 91 14 03/10/17 07:00 97.3 F L 91 16 86/58 94 L 03/10/17 04:39 93 03/10/17 04:05 96.3 F L 94 16 86/60 97 03/09/17 23:00 96.8 F L 95 16 97/62 92 L 03/09/17 20:42 72 03/09/17 20:31 72 03/09/17 18:29 97.2 F L 89 18 92/46 98 Intake and Output 03/10/17 03/10/17 03/10/17 06:59 14:59 22:59 Intake Total 300 Output Total 175 Balance -175 300 Intake: Oral 300 Output: Urine 175 Other: Voiding Method Indwelling Catheter Indwelling Catheter # Voids 1 Weight 88.5 kg - Constitutional General appearance: mild distress, thin - EENT dry mouth, no visible thrush or ulcers Eyes: anicteric sclerae ENT: hearing grossly normal - Neck Neck: no lymphadenopathy - Respiratory Respiratory: bilateral: diminished - Cardiovascular Rhythm: regular Heart sounds: normal: S1, S2 Abnormal Heart Sounds: no systolic murmur, no diastolic murmur, no rub, no S3 Gallop, no S4 Gallop, no click, no other leg Peripheral Edema: bilateral: 4+, Pitting - Gastrointestinal massive distension of the abd, unable to palpate liver or spleen, no palpable masses or inguinal lymph nodes - Genitourinary Male genitourinary: scrotal edema - Integumentary Integumentary: pale - Neurologic pt follows commands, answers questions appropriately, very weak, BLE can move on the bed, not able to lift independently, can move BUE independently, does not have enough strength to lift self in bed - Musculoskeletal Musculoskeletal: generalized weakness - Psychiatric pt has been medicated but does answer questions appropriately, provided medical history Psychiatric: A&O x's 3 Results CBC & Chem 7: 03/09/17 05:42 03/10/17 07:41 Labs: Abnormal Lab Results - Last 24 Hours (Table) 03/09/17 03/09/17 03/09/17 Range/Units 20:34 20:36 20:56 Sodium (137-145) mmol/L BUN (9-20) mg/dL Creatinine (0.66-1.25) mg/dL Glucose (74-99) mg/dL POC Glucose (mg/dL) 46 L 50 L 49 L (75-99) mg/dL Calcium (8.4-10.2) mg/dL Magnesium (1.6-2.3) mg/dL 03/09/17 03/09/17 03/10/17 Range/Units 21:19 22:05 02:20 Sodium (137-145) mmol/L BUN (9-20) mg/dL Creatinine (0.66-1.25) mg/dL Glucose (74-99) mg/dL POC Glucose (mg/dL) 108 H 103 H 73 L (75-99) mg/dL Calcium (8.4-10.2) mg/dL Magnesium (1.6-2.3) mg/dL 03/10/17 03/10/17 03/10/17 Range/Units 06:42 07:41 09:27 Sodium 134 L (137-145) mmol/L BUN 86 H* (9-20) mg/dL Creatinine 3.36 H (0.66-1.25) mg/dL Glucose 45 L* (74-99) mg/dL POC Glucose (mg/dL) 72 L 63 L (75-99) mg/dL Calcium 11.6 H (8.4-10.2) mg/dL Magnesium 2.8 H (1.6-2.3) mg/dL 03/10/17 03/10/17 Range/Units 10:12 11:35 Sodium (137-145) mmol/L BUN (9-20) mg/dL Creatinine (0.66-1.25) mg/dL Glucose (74-99) mg/dL POC Glucose (mg/dL) 63 L 122 H (75-99) mg/dL Calcium (8.4-10.2) mg/dL Magnesium (1.6-2.3) mg/dL Assessment and Plan (1) Liposarcoma of peritoneum Narrative/Plan: Diagnosis and treatment has been done at [facility]. Pt has had diagnosis since November 2016 with no treatment other then surgeries due to recurrent masses. Greatest concern at this time is the lower body edema, it is unclear if this due to ARF or are there masses compromising IVC or lymphatic drainage. Pt has not had imaging since January and due to ARF only non-contrast image would be able to be done. Pt was due to be seen by [facility] Radiation Oncology as that modality of treatment was most likely felt to be most appropriate for pt condition and able to yield greater results faster. Case was discussed with Radiation Oncology, they will see pt and determine what they can do at this time to palliate pt in the near future. Had a long discussion with pt . She understands that intent of treatment is palliation of symptoms. She understands also that systemic chemotherapy is not recommended at this time due to pt poor performance status. We discussed code status and pt has verbalized that he wishes to be a full code. and I discussed realistic outcomes/expectations, that pt would likely never come off of life support once placed on. She and her son are acutely aware of this and they will approach pt and have this discussion. Status: Acute (2) Scrotal edema Status: Acute (3) Acute renal failure (ARF) Narrative/Plan: Pt is being treated for tumor lysis syndrome, Nephrology following. Status: Acute (4) History of testicular cancer Narrative/Plan: Treated in 1985, surgery and chemo. Not the source of pt current cancer Status: Chronic Time with Patient: Greater than 30
[2017-03-10] MEDS: PRAZOSIN 1 MG CAP PO SCH (20:21)
[2017-03-10 21:05] LABS: Glucose,Whole Blood 86 mg/dL (75-99)
[2017-03-11] MEDS: HEPARIN SODIUM,PORCINE 5,000 UNIT/ML 1 ML VIAL SQ SCH ×4 (03:35→23:12)
[2017-03-11 05:52] LABS: Glucose,Whole Blood 82 mg/dL (75-99)
[2017-03-11 06:36] LABS: Anisocytosis Slight; CH 27.7; CHCM 29.8; HCT 34.1 % (39.0-53.0); HDW 3.09; HGB 10.7 gm/dL (13.0-17.5); Hypochromasia Marked; MCH 29.3 pg (25.0-35.0); MCHC 31.4 g/dL (31.0-37.0); MCV 93.3 fL (80.0-100.0); Mean Platelet Volume 8.3; RBC 3.66 m/uL (4.30-5.90); RDW 17.3 % (11.5-15.5); WBC 8.1 k/uL (3.8-10.6)
[2017-03-11 06:45] LABS: Calcium 11.6 mg/dL (8.4-10.2); Potassium 5.2 mmol/L (3.5-5.1); Total Bilirubin 0.8 mg/dL (0.2-1.3); Total Protein 5.8 g/dL (6.3-8.2)
[2017-03-11] MEDS: MIDODRINE 5 MG TAB PO SCH ×3 (06:54→16:04)
[2017-03-11] MEDS: NIACIN TR 500 MG CAPSULE.ER PO SCH ×2 (06:54→08:30)
[2017-03-11] MEDS: PANTOPRAZOLE 40 MG TABLET PO SCH (06:55)
[2017-03-11] MEDS: IPRATROPIUM-ALBUTEROL 3 ML NEB INHALATION SCH ×3 (06:57→20:13)
--- NOTE | 2017-03-11 08:21 | P.PN ---
Subjective Patient is seen for follow-up for acute kidney injury. His creatinine is at 3.9 today up from 3.3 yesterday. Patient is maintained on a Lasix drip at 10 mg per hour. His urine output has not been significant. He had about 2 50 mL for the last shift. Blood pressure remains marginal with systolic staying between 100-95 mmHg. Patient is maintained on midodrine. I do see prazosin on his med list which I will discontinue secondary to low blood pressures. The metoprolol is at 100 mg twice a day. Heart rate has been in the 90s I will leave that at the current dose for now. Objective - Vital Signs Vital signs: Vital Signs Temp 97.9 F 03/10/17 16:49 Pulse 90 03/11/17 07:10 Resp 18 03/11/17 03:38 BP 95/51 03/11/17 03:38 Pulse Ox 93 L 03/11/17 06:59 Intake & Output 03/10/17 03/11/17 03/11/17 18:59 06:59 18:59 Intake Total 460 130 Output Total 250 Balance 210 130 Weight 89.5 kg Intake: Intake, IV Titration 60 80 Amount Furosemide 250 mg In 60 80 Sodium Chloride 0.9% 225 ml @ 10 MG/HR 10 mls/hr IVP .Q24H [facility] Rx#: [id number] Oral 400 50 Output: Urine 250 Other: Voiding Method Indwelling Catheter Indwelling Catheter - Exam On examination patient is currently laying in bed he is comfortable. He is not in any acute distress. Blood pressure 95 or 51 heart rate 90/m. He is afebrile Examination of the heart S1 and S2 Examination lungs decreased breath sounds bases basal crackles are heard bilaterally. No wheezing is heard. Examination of the abdomen reveals soft nontender Exam showed lower extremity shows edema 2 to plus bilaterally with significant scrotal edema as well. [employer] exam is grossly intact. Patient is moving all 4 extremities. - Labs CBC & Chem 7: 03/11/17 05:34 03/11/17 05:34 Labs: Abnormal Lab Results - Last 24 Hours (Table) 03/10/17 03/10/17 03/10/17 Range/Units 07:41 09:27 10:12 RBC (4.30-5.90) m/uL Hgb (13.0-17.5) gm/dL Hct (39.0-53.0) % RDW (11.5-15.5) % Sodium 134 L (137-145) mmol/L Potassium (3.5-5.1) mmol/L Carbon Dioxide (22-30) mmol/L BUN 86 H* (9-20) mg/dL Creatinine 3.36 H (0.66-1.25) mg/dL Glucose 45 L* (74-99) mg/dL POC Glucose (mg/dL) 63 L 63 L (75-99) mg/dL Calcium 11.6 H (8.4-10.2) mg/dL Magnesium 2.8 H (1.6-2.3) mg/dL Alkaline Phosphatase (38-126) U/L Total Protein (6.3-8.2) g/dL Total Protein (PEP) (6.2-8.2) g/dL Albumin (3.5-5.0) g/dL Vitamin D 25-Hydroxy (30.0-100.0) ng/mL 03/10/17 03/10/17 03/10/17 Range/Units 10:26 11:35 17:02 RBC (4.30-5.90) m/uL Hgb (13.0-17.5) gm/dL Hct (39.0-53.0) % RDW (11.5-15.5) % Sodium (137-145) mmol/L Potassium (3.5-5.1) mmol/L Carbon Dioxide (22-30) mmol/L BUN (9-20) mg/dL Creatinine (0.66-1.25) mg/dL Glucose (74-99) mg/dL POC Glucose (mg/dL) 122 H 100 H (75-99) mg/dL Calcium (8.4-10.2) mg/dL Magnesium (1.6-2.3) mg/dL Alkaline Phosphatase (38-126) U/L Total Protein (6.3-8.2) g/dL Total Protein (PEP) 5.5 L (6.2-8.2) g/dL Albumin (3.5-5.0) g/dL Vitamin D 25-Hydroxy 29.6 L (30.0-100.0) ng/mL 03/11/17 03/11/17 Range/Units 05:34 05:34 RBC 3.66 L (4.30-5.90) m/uL Hgb 10.7 L (13.0-17.5) gm/dL Hct 34.1 L (39.0-53.0) % RDW 17.3 H (11.5-15.5) % Sodium 132 L (137-145) mmol/L Potassium 5.2 H (3.5-5.1) mmol/L Carbon Dioxide 18 L (22-30) mmol/L BUN 90 H* (9-20) mg/dL Creatinine 3.96 H (0.66-1.25) mg/dL Glucose (74-99) mg/dL POC Glucose (mg/dL) (75-99) mg/dL Calcium 11.6 H (8.4-10.2) mg/dL Magnesium (1.6-2.3) mg/dL Alkaline Phosphatase 182 H (38-126) U/L Total Protein 5.8 L (6.3-8.2) g/dL Total Protein (PEP) (6.2-8.2) g/dL Albumin 2.8 L (3.5-5.0) g/dL Vitamin D 25-Hydroxy (30.0-100.0) ng/mL Assessment and Plan Plan: Assessment 1. Acute kidney injury, most likely ATN. Patient's blood pressure remains low. He is volume overloaded and maintained on Lasix drip which I will continue for now. DC the process and may continue with the Lopressor at the current dose 2. Pyuria rule out urinary tract infection urine culture is not noted at this time. 3. Hyperkalemia secondary to acute kidney injury and metabolic acidosis currently improved 4. Metabolic acidosis associated with acute kidney injury currently improved 5. Status post left nephrectomy in November 2016 Plan DC prazosin, continue with Lasix drip. Check urine culture. Repeat labs in a.m. Start Rocephin empirically
[2017-03-11] MEDS: FUROSEMIDE 250 MG in SODIUM CHLORIDE 0.9% 225 ML IVP SCH (08:25)
[2017-03-11] MEDS: SODIUM BICARBONATE TAB 650 MG TAB PO SCH ×2 (08:28→19:53)
[2017-03-11] MEDS: SERTRALINE 50 MG TAB PO SCH (08:29)
[2017-03-11] MEDS: METOPROLOL TARTRATE 50 MG TAB PO SCH ×2 (08:30→19:53)
[2017-03-11] MEDS: FERROUS SULFATE 325 MG TAB PO SCH (08:30)
[2017-03-11] MEDS: oxyCODONE-APAP 5-325MG 1 EACH TAB PO PRN ×3 (08:40→23:11)
[2017-03-11 09:52] VITALS: BMI 26.7
--- NOTE | 2017-03-11 10:07 | P.PN ---
Subjective The patient remains quite weak. He has persistent anasarca, involving the abdomen as well as bilateral lower extremities. He has sensation in both lower extremities, and is able to move them by lying in bed. However he is unable to bear weight. He is also complaining of difficulty in swallowing Objective - Vital Signs Vital signs: Vital Signs Temp 97 F L 03/11/17 08:00 Pulse 103 H 03/11/17 08:00 Resp 19 03/11/17 08:00 BP 100/56 03/11/17 08:00 Pulse Ox 95 03/11/17 08:00 Intake & Output 03/10/17 03/11/17 03/11/17 18:59 06:59 18:59 Intake Total 460 130 215.167 Output Total 250 Balance 210 130 215.167 Weight 89.5 kg 89.5 kg Intake: Intake, IV Titration 60 80 215.167 Amount Furosemide 250 mg In 60 80 215.167 Sodium Chloride 0.9% 225 ml @ 10 MG/HR 10 mls/hr IVP .Q24H [facility] Rx#: [id number] Oral 400 50 Output: Urine 250 Other: Voiding Method Indwelling Catheter Indwelling Catheter Indwelling Catheter - Constitutional General appearance: Present: no acute distress - EENT Eyes: Present: EOMI, PERRLA ENT: Present: hearing grossly normal, normal oropharynx - Respiratory Respiratory: bilateral: diminished - Cardiovascular Rhythm: regular Heart sounds: normal: S1, S2 - Gastrointestinal General gastrointestinal: Present: distended, soft - Integumentary Integumentary Comment(s): Anasarca involving lower abdominal wall and both lower extremity - Neurologic Neurologic: Present: CNII-XII intact - Musculoskeletal Musculoskeletal: Present: generalized weakness - Psychiatric Psychiatric: Present: A&O x's 3 - Labs CBC & Chem 7: 03/11/17 05:34 03/11/17 05:34 Labs: Abnormal Lab Results - Last 24 Hours (Table) 03/10/17 03/10/17 03/10/17 Range/Units 10:12 10:26 11:35 RBC (4.30-5.90) m/uL Hgb (13.0-17.5) gm/dL Hct (39.0-53.0) % RDW (11.5-15.5) % Sodium (137-145) mmol/L Potassium (3.5-5.1) mmol/L Carbon Dioxide (22-30) mmol/L BUN (9-20) mg/dL Creatinine (0.66-1.25) mg/dL POC Glucose (mg/dL) 63 L 122 H (75-99) mg/dL Calcium (8.4-10.2) mg/dL Alkaline Phosphatase (38-126) U/L Total Protein (6.3-8.2) g/dL Total Protein (PEP) 5.5 L (6.2-8.2) g/dL Albumin (3.5-5.0) g/dL Vitamin D 25-Hydroxy 29.6 L (30.0-100.0) ng/mL 03/10/17 03/11/17 03/11/17 Range/Units 17:02 05:34 05:34 RBC 3.66 L (4.30-5.90) m/uL Hgb 10.7 L (13.0-17.5) gm/dL Hct 34.1 L (39.0-53.0) % RDW 17.3 H (11.5-15.5) % Sodium 132 L (137-145) mmol/L Potassium 5.2 H (3.5-5.1) mmol/L Carbon Dioxide 18 L (22-30) mmol/L BUN 90 H* (9-20) mg/dL Creatinine 3.96 H (0.66-1.25) mg/dL POC Glucose (mg/dL) 100 H (75-99) mg/dL Calcium 11.6 H (8.4-10.2) mg/dL Alkaline Phosphatase 182 H (38-126) U/L Total Protein 5.8 L (6.3-8.2) g/dL Total Protein (PEP) (6.2-8.2) g/dL Albumin 2.8 L (3.5-5.0) g/dL Vitamin D 25-Hydroxy (30.0-100.0) ng/mL Assessment and Plan (1) Acute renal failure (ARF) Narrative/Plan: The patient did have some chronic renal insufficiency. The worsening of renal function, is most likely due to ATN from third spacing. In addition the patient also has hypercalcemia. Tumor lysis was mentioned as a possible cause and the patient received rasburicase. However that is extremely unlikely to be a cause, as the chances of that occurring in patients with a soft tissue sarcoma, even those who have had systemic therapy, would be close to zero Therefore agree with the Dr. Emmanuel's plan to treat the patient as ATN. Defer to nephrology for fluid and diuretic management. Status: Acute (2) Liposarcoma of peritoneum Narrative/Plan: The patient's computed tomography scan in 01/25 had shown development of metastatic disease. He has not had any imaging since. I will order a computed tomography scan of the chest abdomen and pelvis with oral contrast. Though not ideal, this should still be able to give us a reasonable picture as to the burden of disease. The plan is for the patient to have radiation for palliation , and the computed tomography scan should be helpful in guiding recommendations in this regard. The prognosis has been discussed with the patient's and son in detail. We have recommended a no CODE STATUS, which they will discuss with the patient. The patient's performance status is really too poor for any kind of chemotherapy. At this time, the plan, if possible, is to proceed with radiation for palliation. Post radiation, depending on the patient's performance status, systemic therapy with targeted agents can be considered depending on his performance status Status: Acute (3) Hypercalcemia Narrative/Plan: PTH level is pending. Hypercalcemia due to malignancy is certainly a possibility. I will start pamidronate, with split dosing, along with monitoring of his creatinine. Status: Acute
[2017-03-11] MEDS ORDERED: IOHEXOL 350 MG/ML 25 ML BOTTLE (ORAL USE) PO PRN (10:12)
[2017-03-11] MEDS ORDERED: SODIUM CHLORIDE 0.9% 250 ML with PAMIDRONATE 30 MG IV ONE ×2 (10:25)
[2017-03-11] MEDS ORDERED: BARIUM SULFATE 450 ML ORAL.SUSP BOTTLE PO ONE ×2 (11:52→14:56)
[2017-03-11 12:09] LABS: Glucose,Whole Blood 85 mg/dL (75-99)
[2017-03-11] MEDS ORDERED: ONDANSETRON 4 MG/2 ML VIAL IVP STA (12:11)
[2017-03-11] MEDS ORDERED: ONDANSETRON 4 MG/2 ML VIAL ONE (12:15)
--- NOTE | 2017-03-11 14:45 | P.PN ---
Subjective Patient was admitted secondary to acute renal failure and the tumor lysis syndrome leading to acute renal failure and possibly acute tubular necrosis hypotension. Patient is volume overloaded at this point of time because of which patient is on IV Lasix drip. Kidney function continued to worse. Mostly acute tubular necrosis with complaint of prerenal azotemia. Patient does have anasarca generalized tiredness and weakness. REVIEW OF SYSTEMS: CARDIOVASCULAR: No chest pain, no orthopnea, no PND, no palpitations. PULMONARY: Denied any shortness of breath. No cough or hemoptysis. GASTROINTESTINAL: No diarrhea, nausea or vomiting. No abdominal pain. Normoactive bowel sounds. NEUROLOGIC: No headaches, no weakness, no numbness. Objective - Vital Signs Vital signs: Vital Signs Temp 97 F L 03/11/17 08:00 Pulse 88 03/11/17 14:26 Resp 20 03/11/17 14:12 BP 90/50 03/11/17 12:00 Pulse Ox 97 03/11/17 12:00 Intake & Output 03/10/17 03/11/17 03/11/17 18:59 06:59 18:59 Intake Total 460 130 345.167 Output Total 250 Balance 210 130 345.167 Weight 89.5 kg 89.5 kg Intake: Intake, IV Titration 60 80 345.167 Amount Furosemide 250 mg In 60 80 245.167 Sodium Chloride 0.9% 225 ml @ 10 MG/HR 10 mls/hr IVP .Q24H [facility] Rx#: [id number] cefTRIAXone 1,000 mg In 100 Sodium Chloride 0.9% 50 ml @ 100 mls/hr IVPB Q24HR [facility] Rx#:[id number] Oral 400 50 Output: Urine 250 Other: Voiding Method Indwelling Catheter Indwelling Catheter Indwelling Catheter - Exam PHYSICAL EXAMINATION: GENERAL: The patient is alert and oriented x3, not in any acute distress. Well developed, well nourished. Generalized anasarca HEENT: Pupils are round and equally reacting to light. EOMI. No scleral icterus. No conjunctival pallor. Normocephalic, atraumatic. No pharyngeal erythema. No thyromegaly. CARDIOVASCULAR: S1 and S2 present. No murmurs, rubs, or gallops. PULMONARY: Chest is clear to auscultation, no wheezing or crackles. ABDOMEN: Soft, nontender, nondistended, normoactive bowel sounds. No palpable organomegaly. MUSCULOSKELETAL: No joint swelling or deformity. EXTREMITIES: No cyanosis, clubbing, does have extensive bilateral pedal edema along with scrotal edema. NEUROLOGICAL: Gross neurological examination did not reveal any focal deficits. SKIN: No rashes. - Labs CBC & Chem 7: 03/11/17 05:34 03/11/17 05:34 Labs: Abnormal Lab Results - Last 24 Hours (Table) 03/10/17 03/10/17 03/11/17 Range/Units 10:26 17:02 05:34 RBC (4.30-5.90) m/uL Hgb (13.0-17.5) gm/dL Hct (39.0-53.0) % RDW (11.5-15.5) % Sodium 132 L (137-145) mmol/L Potassium 5.2 H (3.5-5.1) mmol/L Carbon Dioxide 18 L (22-30) mmol/L BUN 90 H* (9-20) mg/dL Creatinine 3.96 H (0.66-1.25) mg/dL POC Glucose (mg/dL) 100 H (75-99) mg/dL Calcium 11.6 H (8.4-10.2) mg/dL Alkaline Phosphatase 182 H (38-126) U/L Total Protein 5.8 L (6.3-8.2) g/dL Total Protein (PEP) 5.5 L (6.2-8.2) g/dL Albumin 2.8 L (3.5-5.0) g/dL Vitamin D 25-Hydroxy 29.6 L (30.0-100.0) ng/mL 03/11/17 Range/Units 05:34 RBC 3.66 L (4.30-5.90) m/uL Hgb 10.7 L (13.0-17.5) gm/dL Hct 34.1 L (39.0-53.0) % RDW 17.3 H (11.5-15.5) % Sodium (137-145) mmol/L Potassium (3.5-5.1) mmol/L Carbon Dioxide (22-30) mmol/L BUN (9-20) mg/dL Creatinine (0.66-1.25) mg/dL POC Glucose (mg/dL) (75-99) mg/dL Calcium (8.4-10.2) mg/dL Alkaline Phosphatase (38-126) U/L Total Protein (6.3-8.2) g/dL Total Protein (PEP) (6.2-8.2) g/dL Albumin (3.5-5.0) g/dL Vitamin D 25-Hydroxy (30.0-100.0) ng/mL Assessment and Plan Plan: #1 acute renal failure, prerenal azotemia and nonoliguric acute tubular necrosis secondary to tumor lysis syndrome and hypotension patient is an IV Lasix drip secondary to third spacing of fluid. Patient has hyperuricemia, hyperkalemia and hyperphosphatasemia secondary to tumor lysis syndrome. Multiple other liquid abnormalities including hypocalcemia secondary to intravascular volume depletion along with liposarcoma. #2 multiple or carotid anomalies as mentioned above along with metabolic acidosis which is secondary to acute renal failure #3 thrombocytopenia #4: Lipo-Sarcoma : Patient is getting a repeat CT today and oncology evaluated the patient. #5 peripheral neuropathy #6 diabetes mellitus type 2 #7 hypertension #8 Dys lipidemia #9 history of gout #10 hyperkalemia secondary to #1 #11 chronic kidney disease: Secondary to left nephrectomy
--- NOTE | 2017-03-11 14:48 | P.PN ---
Subjective Patient was admitted secondary to acute renal failure and the tumor lysis syndrome leading to acute renal failure and possibly acute tubular necrosis hypotension. Patient is volume overloaded at this point of time because of which patient is on IV Lasix drip. Kidney function continued to worse. Mostly acute tubular necrosis with complaint of prerenal azotemia. Patient does have anasarca generalized tiredness and weakness. scrotal edema improved. kideney function worsening. REVIEW OF SYSTEMS: CARDIOVASCULAR: No chest pain, no orthopnea, no PND, no palpitations. PULMONARY: Denied any shortness of breath. No cough or hemoptysis. GASTROINTESTINAL: No diarrhea, nausea or vomiting. No abdominal pain. Normoactive bowel sounds. NEUROLOGIC: No headaches, no weakness, no numbness. Objective - Vital Signs Vital signs: Vital Signs Temp 97 F L 03/11/17 08:00 Pulse 88 03/11/17 14:26 Resp 20 03/11/17 14:12 BP 90/50 03/11/17 12:00 Pulse Ox 97 03/11/17 12:00 Intake & Output 03/10/17 03/11/17 03/11/17 18:59 06:59 18:59 Intake Total 460 130 345.167 Output Total 250 Balance 210 130 345.167 Weight 89.5 kg 89.5 kg Intake: Intake, IV Titration 60 80 345.167 Amount Furosemide 250 mg In 60 80 245.167 Sodium Chloride 0.9% 225 ml @ 10 MG/HR 10 mls/hr IVP .Q24H [facility] Rx#: [id number] cefTRIAXone 1,000 mg In 100 Sodium Chloride 0.9% 50 ml @ 100 mls/hr IVPB Q24HR [facility] Rx#:[id number] Oral 400 50 Output: Urine 250 Other: Voiding Method Indwelling Catheter Indwelling Catheter Indwelling Catheter - Exam GENERAL: The patient is alert and oriented x3, not in any acute distress. Well developed, well nourished. Generalized anasarca HEENT: Pupils are round and equally reacting to light. EOMI. No scleral icterus. No conjunctival pallor. Normocephalic, atraumatic. No pharyngeal erythema. No thyromegaly. CARDIOVASCULAR: S1 and S2 present. No murmurs, rubs, or gallops. PULMONARY: Chest is clear to auscultation, no wheezing or crackles. ABDOMEN: Soft, nontender, nondistended, normoactive bowel sounds. No palpable organomegaly. MUSCULOSKELETAL: No joint swelling or deformity. EXTREMITIES: No cyanosis, clubbing, does have extensive bilateral pedal edema along with scrotal edema. NEUROLOGICAL: Gross neurological examination did not reveal any focal deficits. SKIN: No rashes. - Labs CBC & Chem 7: 03/11/17 05:34 03/11/17 05:34 Labs: Abnormal Lab Results - Last 24 Hours (Table) 03/10/17 03/10/17 03/11/17 Range/Units 10:26 17:02 05:34 RBC (4.30-5.90) m/uL Hgb (13.0-17.5) gm/dL Hct (39.0-53.0) % RDW (11.5-15.5) % Sodium 132 L (137-145) mmol/L Potassium 5.2 H (3.5-5.1) mmol/L Carbon Dioxide 18 L (22-30) mmol/L BUN 90 H* (9-20) mg/dL Creatinine 3.96 H (0.66-1.25) mg/dL POC Glucose (mg/dL) 100 H (75-99) mg/dL Calcium 11.6 H (8.4-10.2) mg/dL Alkaline Phosphatase 182 H (38-126) U/L Total Protein 5.8 L (6.3-8.2) g/dL Total Protein (PEP) 5.5 L (6.2-8.2) g/dL Albumin 2.8 L (3.5-5.0) g/dL Vitamin D 25-Hydroxy 29.6 L (30.0-100.0) ng/mL 03/11/17 Range/Units 05:34 RBC 3.66 L (4.30-5.90) m/uL Hgb 10.7 L (13.0-17.5) gm/dL Hct 34.1 L (39.0-53.0) % RDW 17.3 H (11.5-15.5) % Sodium (137-145) mmol/L Potassium (3.5-5.1) mmol/L Carbon Dioxide (22-30) mmol/L BUN (9-20) mg/dL Creatinine (0.66-1.25) mg/dL POC Glucose (mg/dL) (75-99) mg/dL Calcium (8.4-10.2) mg/dL Alkaline Phosphatase (38-126) U/L Total Protein (6.3-8.2) g/dL Total Protein (PEP) (6.2-8.2) g/dL Albumin (3.5-5.0) g/dL Vitamin D 25-Hydroxy (30.0-100.0) ng/mL Assessment and Plan Plan: #1 acute renal failure, prerenal azotemia and nonoliguric acute tubular necrosis secondary to tumor lysis syndrome and hypotension patient is an IV Lasix drip secondary to third spacing of fluid. Patient has minimal worsening of the function today Patient has hyperuricemia, hyperkalemia and hyperphosphatasemia secondary to tumor lysis syndrome. Multiple other liquid abnormalities including hypocalcemia secondary to intravascular volume depletion along with liposarcoma. #2 multiple electrolyte abnormalities as mentioned above along with metabolic acidosis which is secondary to acute renal failure #3 thrombocytopenia #4: Lipo-Sarcoma : Patient is getting a repeat CT today and oncology evaluated the patient. #5 peripheral neuropathy #6 diabetes mellitus type 2 #7 hypertension #8 Dys lipidemia #9 history of gout #10 hyperkalemia secondary to #1 #11 chronic kidney disease: Secondary to left nephrectomy
[2017-03-11 17:25] LABS: Glucose,Whole Blood 96 mg/dL (75-99)
[2017-03-11] MEDS: PRAZOSIN 1 MG CAP PO SCH (19:53)
[2017-03-11 20:25] LABS: Glucose,Whole Blood 89 mg/dL (75-99)
--- NOTE | 2017-03-11 20:32 | CT ---
EXAMINATION TYPE: CT ChestAbdPelvis wo con DATE OF EXAM: 03/11/2017 INDICATION: Patient poor historian COMPARISON: 01/11/2017 CT DLP: 1097.5 mGycm CONTRAST: Performed with Oral Contrast TECHNIQUE: Axial images at 5 mm thick sections. Reconstructed images in the coronal plane. Delayed images through the kidneys. FINDINGS: CT CHEST: Portion of the thyroid visualized is normal. Some reflux into the esophagus during the exam. Coronary artery calcifications present. There is a moderate left pleural effusion with a small right pleural effusion Calcified granuloma within the right middle lobe. Series 5 image 35. No enlarged mediastinal or hilar adenopathy is evident. The ascending aorta diameter at the level of the main pulmonary artery is 3.5 cm. The main pulmonary artery diameter at the bifurcation is 2. cm. CT ABDOMEN: Ascites. Liver: Multiple scattered hypodensities throughout bilateral lobes liver compatible with metastatic d isease. Largest on the left measures 7 x 4 cm. Right kidney measures 6 cm. Additional hypodensities size range of 2 to 3 cm diameter are scattered t hroughout the liver. Spleen: Normal Pancreas: Difficult to evaluate with soft tissue density scattered through the upper abdomen compatib le with lymphadenopathy. Lymphadenopathy extensive adenopathy is evident. The portal and celiac axis region, epigastric region extending to the anterior peritoneal wall is likely in the size ranges 13 cm total volume. Adrenal glands: Right adrenal gland appears normal. Left lamina is not identified separate from the s oft tissue density in the upper abdomen. Gallbladder: Poorly visualized. No gallstones are identified. Kidneys: Right kidney appears normal without obvious masses or hydronephrosis. Small cortical renal c yst. Present. Left kidney is not discretely identified. Aorta: Vascular calcification is within the aorta. Inferior vena cava: Normal. Large exophytic mass destroying the lower thoracic spine vertebral bodies is evident. CT PELVIS: Loops of bowel within the abdomen and pelvis are normal. There is a large fecal bolus at the leve l the rectum. Diverticular changes are through the sigmoid colon. Additional scattered diverticuli ar e within the colon. Appendix: Normal as visualized. This is limited evaluation. There are also diverticula in this region making diffusely appearance. Urinary bladder: Decompressed with a Ross catheter Genitourinary structures: Prostate is poorly visualized. There is diffuse soft tissue swelling especially at the lower extremities pelvic flanks. Osseous structures: Lytic lesions are within the lower thoracic spine. Postsurgical changes are prese nt T10-L3. IMPRESSIONS: 1. Extensive progression of metastatic disease with marked enlarged adenopathy through the epigastric region and multiple metastatic lesions within the liver. 2. Ascites. 3. Moderate left and small right pleural effusion. 4. Lytic lesion within the thoracolumbar junction again evident. This is progressive.
[2017-03-12 06:03] LABS: Glucose,Whole Blood 80 mg/dL (75-99)
[2017-03-12] MEDS: FUROSEMIDE 250 MG in SODIUM CHLORIDE 0.9% 225 ML IVP SCH (06:27)
[2017-03-12] MEDS: MIDODRINE 5 MG TAB PO SCH ×2 (06:28→07:35)
[2017-03-12] MEDS: PANTOPRAZOLE 40 MG TABLET PO SCH (06:28)
[2017-03-12] MEDS: NIACIN TR 500 MG CAPSULE.ER PO SCH (06:28)
[2017-03-12] MEDS: oxyCODONE-APAP 5-325MG 1 EACH TAB PO PRN (06:40)
[2017-03-12] MEDS: FERROUS SULFATE 325 MG TAB PO SCH (07:34)
[2017-03-12] MEDS: HEPARIN SODIUM,PORCINE 5,000 UNIT/ML 1 ML VIAL SQ SCH (07:35)
[2017-03-12] MEDS: SODIUM BICARBONATE TAB 650 MG TAB PO SCH (07:35)
[2017-03-12] MEDS: SERTRALINE 50 MG TAB PO SCH (07:35)
--- NOTE | 2017-03-12 08:18 | P.PN ---
Subjective Patient is seen for follow-up for acute kidney injury. His creatinine is at 3.9 today up from 3.3 yesterday. Patient is maintained on a Lasix drip at 10 mg per hour. His urine output has not been significant. He had about 2 50 mL for the last shift. Blood pressure remains marginal with systolic staying between 100-95 mmHg. Patient is maintained on midodrine. I do see prazosin on his med list which I will discontinue secondary to low blood pressures. The metoprolol is at 100 mg twice a day. Heart rate has been in the 90s I will leave that at the current dose for now. Patient has not had significant urine output. He remains on Lasix at 10 mg per hour. He did have a CAT scan done yesterday which was ordered by oncology and it showed the progressive disease with increased her metastatic lesions. Patient's is present at bedside I discussed the options of dialysis given the fact that his kidney function has not improved and volume status continues to worsen. However, given his underlying metastatic disease which is progressive I do not recommend long-term renal replacement therapy. Patient's states that she will discuss this further with the rest of the family and let us know. Objective - Vital Signs Vital signs: Vital Signs Temp 98.8 F 03/12/17 04:00 Pulse 77 03/12/17 04:00 Resp 17 03/12/17 04:00 BP 94/57 03/12/17 04:00 Pulse Ox 95 03/12/17 04:00 Intake & Output 03/11/17 03/12/17 03/12/17 18:59 06:59 18:59 Intake Total 595.167 420.333 Output Total 100 50 Balance 495.167 370.333 Weight 89.5 kg 90 kg Intake: IV 160 Furosemide 250 mg In 160 Sodium Chloride 0.9% 225 ml @ 10 MG/HR 10 mls/hr IVP .Q24H [facility] Rx#: [id number] Intake, IV Titration 595.167 220.333 Amount Furosemide 250 mg In 245.167 220.333 Sodium Chloride 0.9% 225 ml @ 10 MG/HR 10 mls/hr IVP .Q24H [facility] Rx#: [id number] Sodium Chloride 0.9% 250 250 0 ml @ 83 mls/hr IV .Q3H1M [facility] with Pamidronate 30 mg Rx#:[id number] cefTRIAXone 1,000 mg In 100 Sodium Chloride 0.9% 50 ml @ 100 mls/hr IVPB Q24HR [facility] Rx#:[id number] Oral 40 Output: Urine 100 50 Other: Voiding Method Indwelling Catheter Indwelling Catheter # Bowel Movements 1 - Exam On examination patient is laying in bed he is comfortable he is not in any acute distress. Blood pressure is 94/57 heart rate 77/m. Examination of the heart S1 and S2 Exertion lungs bilateral breath sounds are decreased Abdomen is soft distended ascites is noted. Abdomen is nontender. Exertion lower extremity shows edema 2+ bilaterally with evidence of scrotal edema as well. MATH SPECIALIST exam is grossly intact jerky movements are noted patient is moving all 4 extremities. - Labs CBC & Chem 7: 03/11/17 05:34 03/11/17 05:34 Labs: Microbiology - Last 24 Hours (Table) 03/11/17 09:00 Urine Culture - Preliminary Urine,Catheterized Assessment and Plan Plan: Assessment 1. Acute kidney injury, most likely ATN. Patient's blood pressure remains low. He is volume overloaded and maintained on Lasix drip which I will continue for now. Patient remains quite oliguric. They may be a component of uremia as well. Ideally he would need dialysis however given his underlying progressive metastatic disease I'm not sure if this will add much to the quality of life down the road. This is discussed with the and she will discuss it with the rest of the family and let us know. 2. Pyuria rule out urinary tract infection urine culture is not noted at this time. 3. Hyperkalemia secondary to acute kidney injury and metabolic acidosis currently improved 4. Metabolic acidosis associated with acute kidney injury currently improved 5. Status post left nephrectomy in November 2016 6. Hypercalcemia secondary to malignancy status post pamidronate Plan Dialysis has been discussed with patient and his . I do not believe this will add much to his overall quality of life given the underlying progressive metastatic disease. Await family's decision regarding CODE STATUS and renal replacement therapy. Overall prognosis is poor.
[2017-03-12 08:24] VITALS: BP 90/48; RESP 18; TEMP 97.6
[2017-03-12] MEDS: IPRATROPIUM-ALBUTEROL 3 ML NEB INHALATION SCH ×2 (08:42→12:17)
[2017-03-12 08:56] VITALS: PULSE 88
--- NOTE | 2017-03-12 10:19 | PN ---
The patient's kidney function is not improved although the patient is urinating well and the patient is being treated for acute tubular necrosis. ( ) was discontinued and the patient has continued to improve. The patient is on IV fluids at gentle hydration at this point of time. Since I didn't start him on any calcitonin since the patient's calcium did improve. The patient has a recent soft tissue sarcoma and there is a concern of tumor lysis syndrome. The patient was given ( ) yesterday and as per the request of the patient and as it is a reasonable request, I am consulting oncology. REVIEW OF SYSTEMS: PHYSICAL EXAMINATION: VITAL SIGNS: Temperature 97.2, pulse is 72, respiratory rate of 18, blood pressure is 92/46, saturating at 98% on room air. ABDOMEN: The patient's abdomen is distended. The patient does have bowel sounds, tympanic in nature. The patient's abdominal distention is chronic as per the patient although the patient does not have any dullness or fluid ( ) at this point of time. LABORATORY DATA: CBC and CMP are abnormal for hemoglobin of 10.2 which is fairly stable, sodium 135 which improved and potassium 5.2, fairly stable. Metabolic acidosis with anion gap of 13, bicarbonate of 16. BUN remains fairly stable at 83. Creatinine, no significant improvement, 2.25. Blood glucose is low secondary to renal dysfunction. Uric acid has come down. Calcium 11.7 which has come down. Magnesium 3.1. Lactic dehydrogenase 2351. UA significant abnormal with greater than ( ) WBCs and 182 RBCs, many bacteria although my suspicion is low for urinary tract infection. ASSESSMENT AND PLAN: 1. Acute on chronic kidney disease with baseline creatinine of 1.3. 2. Prerenal azotemia as well as acute tubular necrosis multifactorial ( ) intravascular volume depletion. 3. Concern of tumor lysis syndrome. 4. Iron deficiency anemia. 5. Soft tissue sarcoma with concern of tumor lysis which was recently removed. 6. Diabetic peripheral neuropathy. 7. Hypercalcemia, probably due to dehydration versus sarcoma related. 8. Hyperkalemia secondary to acute renal failure. 9. Hypertension. 10. Dyslipidemia. 11. Nonion gap metabolic acidosis secondary to uremia. 12. Chronic anemia, anemia of chronic kidney disease. 13. Hyponatremia, hypovolemic hyponatremia most probably. PLAN: Continue with IV fluids and urine abnormality is not consistent with UTI , the patient has many bacteria. Most of the urine abnormality is secondary to possible tumor lysis syndrome. Continue Kayexalate on an as needed basis for hyperkalemia. Continue with IV fluids. Repeat electrolytes and kidney function tomorrow. Consult oncology. MTDD
[2017-03-12 11:36] LABS: Anisocytosis Slight; CH 27.8; CHCM 29.9; HCT 35.2 % (39.0-53.0); HDW 3.19; HGB 10.8 gm/dL (13.0-17.5); Hypochromasia Marked; MCH 28.8 pg (25.0-35.0); MCHC 30.7 g/dL (31.0-37.0); MCV 93.7 fL (80.0-100.0); Mean Platelet Volume 7.9; RBC 3.76 m/uL (4.30-5.90); RDW 17.4 % (11.5-15.5); WBC 11.5 k/uL (3.8-10.6)
--- NOTE | 2017-03-12 11:40 | P.PN ---
Subjective Principal diagnosis: Metastatic liposarcoma The patient appears to have deteriorated significantly compared to yesterday. He is much less responsive, with intermittent periods of clarity, interspersed with the dose of lethargy and confusion. There appears to be increased abdominal distention, and persistent marked lower extremity swelling. Objective - Vital Signs Vital signs: Vital Signs Temp 97.6 F 03/12/17 08:00 Pulse 88 03/12/17 08:55 Resp 18 03/12/17 08:00 BP 90/48 03/12/17 08:00 Pulse Ox 92 L 03/12/17 08:00 Intake & Output 03/11/17 03/12/17 03/12/17 18:59 06:59 18:59 Intake Total 595.167 420.333 Output Total 100 50 Balance 495.167 370.333 Weight 89.5 kg 90 kg Intake: IV 160 Furosemide 250 mg In 160 Sodium Chloride 0.9% 225 ml @ 10 MG/HR 10 mls/hr IVP .Q24H [facility] Rx#: [id number] Intake, IV Titration 595.167 220.333 Amount Furosemide 250 mg In 245.167 220.333 Sodium Chloride 0.9% 225 ml @ 10 MG/HR 10 mls/hr IVP .Q24H [facility] Rx#: [id number] Sodium Chloride 0.9% 250 250 0 ml @ 83 mls/hr IV .Q3H1M [facility] with Pamidronate 30 mg Rx#:[id number] cefTRIAXone 1,000 mg In 100 Sodium Chloride 0.9% 50 ml @ 100 mls/hr IVPB Q24HR [facility] Rx#:[id number] Oral 40 Output: Urine 100 50 Other: Voiding Method Indwelling Catheter Indwelling Catheter Indwelling Catheter # Bowel Movements 1 - Constitutional General appearance: Present: mild distress - EENT Eyes: Present: PERRLA ENT: Present: hearing grossly normal, normal oropharynx - Respiratory Respiratory: bilateral: diminished - Cardiovascular Rhythm: regular Heart sounds: normal: S1, S2 - Peripheral edema leg Peripheral Edema: bilateral: 2+, Pitting - Gastrointestinal General gastrointestinal: Present: decreased bowel sounds, distended - Integumentary Integumentary: Present: normal - Neurologic Neurologic Comment(s): Mental status, as noted in the HPI Neurologic: Present: CNII-XII intact - Musculoskeletal Musculoskeletal: Present: generalized weakness - Labs CBC & Chem 7: 03/11/17 05:34 03/11/17 05:34 Labs: Microbiology - Last 24 Hours (Table) 03/11/17 09:00 Urine Culture - Preliminary Urine,Catheterized Assessment and Plan (1) Acute renal failure (ARF) Narrative/Plan: The patient was seen by nephrology today. He doesn't appear to have improved despite hydration and Lasix drip. Urine output remains quite poor, and he has persistent marked anasarca. It was therefore felt that the current aggressive measures were ineffective, and the patient would ideally need dialysis for further treatment. However, appropriately, he was felt to be a poor candidate for the same due to his underlying malignancy and performance status Status: Acute (2) Liposarcoma of peritoneum Narrative/Plan: The patient had restaging CT scans done, which unfortunately show massive progression of disease. He has extensive adenopathy in the upper abdomen, bilateral liver metastasis, as well as recurrence of her tumor in the lower thoracic spine causing progressive destruction. His performance status is very poor, at essentially an ECOG 4, and he appears to have clinically declined even in the last 24 hours. The implications of the computed tomography scan were discussed in detail with the the patient and and son were at the bedside. Given the rapid progression of his cancer, he would ideally need aggressive multi agent chemotherapy, to have a chance for response. Unfortunately he is not a candidate for the same given his very poor performance status. He cannot proceed to treatment without having effective renal replacement therapy, and improvement in his performance status. However even if he were placed on dialysis, it would be highly unlikely that he would improve sufficiently to be able to tolerate treatment. In addition his underlying cancer is generally relatively chemo resistant. Even if chemotherapy is effective, usually stabilization of disease or minor partial responses are seen. These would not be effective in improving his performance status. Based on the above, it was felt that he was not an appropriate candidate for continued aggressive therapy. Therefore comfort care was discussed. The family were fully in agreement with the same. The patient's status will be changed to no code. Hospice will be consulted. Status: Acute (3) Hypercalcemia Status: Acute
[2017-03-12 11:42] LABS: Potassium 5.7 mmol/L (3.5-5.1)
[2017-03-12] MEDS ORDERED: MORPHINE SULFATE 2 MG/ML SYRINGE IVP PRN (11:46)
[2017-03-12] MEDS ORDERED: LORazepam 2 MG/ML SYRINGE IV PRN (11:47)
[2017-03-12] MEDS: METOPROLOL TARTRATE 50 MG TAB PO SCH (12:30)
--- NOTE | 2017-03-12 13:48 | P.DS ---
Providers Date of admission: 03/08/17 10:59 Attending physician: Tracy Diaz Consults: 03/08/17 11:13 Consult Physician Urgent Consulting Provider: Berna Emmanuel Consult Reason/Comments: Hyperkalemia with renal failure Do you want consulting provider notified?: Yes 03/09/17 15:16 Consult Physician Urgent Consulting Provider: Roberto Espinosa Consult Reason/Comments: Cancer history Do you want consulting provider notified?: Yes [facility] Course: Patient was admitted secondary to acute renal failure and the tumor lysis syndrome leading to acute renal failure and possibly acute tubular necrosis hypotension. Patient did not have any significant improvement in his overall clinical condition continued to worse. With worsening kidney function and tumor lysis syndrome. 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 Hospice evaluate the patient today. All the medications were discontinued except for comfort medications. #1 acute renal failure, prerenal azotemia and nonoliguric acute tubular necrosis secondary to tumor lysis syndrome and hypotensio. 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 #5 peripheral neuropathy #6 diabetes mellitus type 2 #7 hypertension #8 Dys lipidemia #9 history of gout #10 hyperkalemia secondary to #1 #11 chronic kidney disease: Secondary to left nephrectomy Patient Condition at Discharge: Serious Plan - Discharge Summary New Discharge Prescriptions: No Action glipiZIDE [Glucotrol] 5 mg PO AC-BID amLODIPine [Norvasc] 10 mg PO DAILY Metoprolol Tartrate [Lopressor] 100 mg PO BID Cholecalciferol [Vitamin D3] 1,000 unit PO BID Allopurinol [Zyloprim] 100 mg PO DAILY Ferrous Sulfate [Feosol] 325 mg PO DAILY Ascorbic Acid [Vitamin C] 1,000 mg PO DAILY Niacin 500 mg PO BID-W/MEALS Sertraline [Zoloft] 150 mg PO DAILY Vitamin B Complex 1 cap PO DAILY Pantoprazole [Protonix] 40 mg PO DAILY Docusaste 250mg 250 mg PO DAILY Insulin Glargine [Lantus] 50 unit SQ HS Magnesium Oxide [Mag-Ox] 400 mg PO DAILY Methocarbamol [Robaxin] 750 mg PO TID oxyCODONE HCL [Oxyir] 5 - 10 mg PO Q4HR PRN PRN Reason: Pain Ondansetron HCl [Zofran] 8 mg PO Q8H PRN PRN Reason: Nausea Zolpidem [Ambien] 5 mg PO HS PRN PRN Reason: Insomnia Prazosin HCl [Minipress] 2 mg PO HS HYDROcodone/APAP 10-325MG [[place] 10-325] 1 - 2 tab PO Q4HR PRN PRN Reason: Pain Discharge Medication List Allopurinol [Zyloprim] 100 mg PO DAILY 09/15/16 [History] Ascorbic Acid [Vitamin C] 1,000 mg PO DAILY 09/15/16 [History] Cholecalciferol [Vitamin D3] 1,000 unit PO BID 09/15/16 [History] Docusaste 250mg 250 mg PO DAILY 09/15/16 [History] Ferrous Sulfate [Feosol] 325 mg PO DAILY 09/15/16 [History] Metoprolol Tartrate [Lopressor] 100 mg PO BID 09/15/16 [History] Niacin 500 mg PO BID-W/MEALS 09/15/16 [History] Pantoprazole [Protonix] 40 mg PO DAILY 09/15/16 [History] Sertraline [Zoloft] 150 mg PO DAILY 09/15/16 [History] Vitamin B Complex 1 cap PO DAILY 09/15/16 [History] amLODIPine [Norvasc] 10 mg PO DAILY 09/15/16 [History] glipiZIDE [Glucotrol] 5 mg PO AC-BID 09/15/16 [History] Insulin Glargine [Lantus] 50 unit SQ HS 01/11/17 [History] Magnesium Oxide [Mag-Ox] 400 mg PO DAILY 01/11/17 [History] HYDROcodone/APAP 10-325MG [[place] 10-325] 1 - 2 tab PO Q4HR PRN 03/08/17 [History ] Methocarbamol [Robaxin] 750 mg PO TID 03/08/17 [History] Ondansetron HCl [Zofran] 8 mg PO Q8H PRN 03/08/17 [History] Prazosin HCl [Minipress] 2 mg PO HS 03/08/17 [History] Zolpidem [Ambien] 5 mg PO HS PRN 03/08/17 [History] oxyCODONE HCL [Oxyir] 5 - 10 mg PO Q4HR PRN 03/08/17 [History] Follow up Appointment(s)/Referral(s): Santino Aggarwal DO [Primary Care Provider] - 1-2 days
== END 2017-03-12 14:50 | disposition hospice, inpatient (51) | DRG 683 ==
LOC: EC 09:21 → 6SEL 10:59 → 4MS4W 03-09 17:54 → 6SEL 03-10 09:46
PROVIDERS: ADMIT Internal Medicine; ATTEND Internal Medicine
DX: N17.0 Acute kidney failure with tubular necrosis (principal); E87.2 Acidosis; C78.7 Secondary malignant neoplasm of liver and intrahepatic bile duct; E11.22 Type 2 diabetes mellitus with diabetic chronic kidney disease; D69.6 Thrombocytopenia, unspecified; E11.42 Type 2 diabetes mellitus with diabetic polyneuropathy; E83.52 Hypercalcemia; E87.1 Hypo-osmolality and hyponatremia; E87.70 Fluid overload, unspecified; I12.9 Hypertensive chronic kidney disease with stage 1 through stage 4 chronic kidney disease, or unspecified chronic kidney disease; F17.200 Nicotine dependence, unspecified, uncomplicated; D50.9 Iron deficiency anemia, unspecified; E87.5 Hyperkalemia; E88.3 Tumor lysis syndrome; H40.9 Unspecified glaucoma; K21.9 Gastro-esophageal reflux disease without esophagitis; M10.9 Gout, unspecified; N18.9 Chronic kidney disease, unspecified; D63.1 Anemia in chronic kidney disease; E78.5 Hyperlipidemia, unspecified; E86.0 Dehydration; R13.10 Dysphagia, unspecified; Z79.4 Long term (current) use of insulin; Z79.899 Other long term (current) drug therapy; Z82.49 Family history of ischemic heart disease and other diseases of the circulatory system; Z85.47 Personal history of malignant neoplasm of testis; Z85.528 Personal history of other malignant neoplasm of kidney; Z90.5 Acquired absence of kidney; Z92.21 Personal history of antineoplastic chemotherapy; Z92.3 Personal history of irradiation; Z91.041 Radiographic dye allergy status
CPT/HCPCS: 36415; 71250; 74176; 80048; 80053; 81001; 82306; 82533; 82550; 82553; 82652; 83615; 83735; 83970; 84100; 84165; 84484; 84550; 85025; 85027; 86335; 87086; 93005; 94640; 94760

== ENCOUNTER 2017-03-12 15:10 | Inpatient (IN) | payer MEDICAID ==
[2017-03-12] MEDS ORDERED: SCOPOLAMINE 1.5MG/72HR PATCH TRANSDERM PRN (15:59)
[2017-03-12] MEDS ORDERED: ACETAMINOPHEN SUPPOSITORY 650 MG SUPP RECTAL PRN (15:59)
[2017-03-12] MEDS ORDERED: ONDANSETRON 4 MG/2 ML VIAL IVP PRN (15:59)
[2017-03-12] MEDS: LORazepam 2 MG/ML SYRINGE IV PRN ×2 (16:20→23:47)
[2017-03-12 17:00] VITALS: BMI 23.9
[2017-03-12] MEDS: MORPHINE SULFATE 2 MG/ML SYRINGE IV PRN ×7 (17:01→23:40)
[2017-03-13] MEDS: MORPHINE SULFATE 2 MG/ML SYRINGE IV PRN ×8 (00:58→09:25)
[2017-03-13] MEDS: LORazepam 2 MG/ML SYRINGE IV PRN ×3 (02:28→19:34)
[2017-03-13] MEDS: MORPHINE SULFATE (100 MG/2 ML) 100 MG in SODIUM CHLORIDE 0.9% 100 ML IV SCH (09:49)
--- NOTE | 2017-03-13 14:02 | P.HPIM ---
History of Present Illness Patient is being admitted to general inpatient hospice for recurrent symptomatic management. Please refer to my dictation of H&P and discharge summary for further details of hospitalization course. Patient has advancing rapidly progressing soft tissue sarcoma. Patient is presently on IV morphine. 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 History of Any Multi-Drug Resistant Organisms: None Reported Past Surgical History: Appendectomy Additional Past Surgical History / Comment(s): 30 yrs ago-left orchiectomy and retroperitoneal lymph node resection x2 and lymph node in left side of neck removed, 12/01/16 left kidney removed (liposarcoma) at [facility], 02/09/17 back surgery for cancerous tumor-has fusion and screws-done at [facility], 30 yrs ago mediport and then removed, colonoscopies, Past Anesthesia/Blood Transfusion Reactions: No Reported Reaction Additional Past Anesthesia/Blood Transfusion Reaction / Comment(s): Pt has had numerous blood transfusions without reaction. Past Psychological History: Depression Additional Psychological History / Comment(s): Pt denies suicidal thoughts or plans. He reside with his spouse. He has not been ambulatory since his back surgery on 02/09/17. He has borrowed a wheelchair from [facility] but it is too small. He wears a back brace. He is a [place] . Smoking Status: Light tobacco smoker - Past Family History Father Family Medical History: Renal Disease Additional Family Medical History / Comment(s): Father developed kidney disease after he took someone elses blood pressure medication-he at the age of 76yrs. Mother Family Medical History: Cancer, Coronary Artery Disease (CAD) Additional Family Medical History / Comment(s): Mother in her 80's. Medications and Allergies Home Medications Medication Instructions Recorded Confirmed Type Allopurinol [Zyloprim] 100 mg PO DAILY 09/15/16 03/12/17 History Ascorbic Acid [Vitamin C] 1,000 mg PO DAILY 09/15/16 03/12/17 History Cholecalciferol [Vitamin D3] 1,000 unit PO BID 09/15/16 03/12/17 History Docusaste 250mg 250 mg PO DAILY 09/15/16 03/12/17 History Ferrous Sulfate [Feosol] 325 mg PO DAILY 09/15/16 03/12/17 History Metoprolol Tartrate [Lopressor] 100 mg PO BID 09/15/16 03/12/17 History Niacin 500 mg PO BID-W/MEALS 09/15/16 03/12/17 History Pantoprazole [Protonix] 40 mg PO DAILY 09/15/16 03/12/17 History Sertraline [Zoloft] 150 mg PO DAILY 09/15/16 03/12/17 History Vitamin B Complex 1 cap PO DAILY 09/15/16 03/12/17 History amLODIPine [Norvasc] 10 mg PO DAILY 09/15/16 03/12/17 History glipiZIDE [Glucotrol] 5 mg PO AC-BID 09/15/16 03/12/17 History Insulin Glargine [Lantus] 50 unit SQ HS 01/11/17 03/12/17 History Magnesium Oxide [Mag-Ox] 400 mg PO DAILY 01/11/17 03/12/17 History HYDROcodone/APAP 10-325MG [[place] 1 - 2 tab PO Q4HR PRN 03/08/17 03/12/17 History 10-325] Methocarbamol [Robaxin] 750 mg PO TID 03/08/17 03/12/17 History Ondansetron HCl [Zofran] 8 mg PO Q8H PRN 03/08/17 03/12/17 History Prazosin HCl [Minipress] 2 mg PO HS 03/08/17 03/12/17 History Zolpidem [Ambien] 5 mg PO HS PRN 03/08/17 03/12/17 History oxyCODONE HCL [Oxyir] 5 - 10 mg PO Q4HR PRN 03/08/17 03/12/17 History Allergies Allergy/AdvReac Type Severity Reaction Status Date / Time Iodinated Contrast Media - Allergy Rash/Hives Verified 03/11/17 11:17 Oral and Physical Exam Vitals: Intake and Output 03/12/17 03/13/17 03/13/17 22:59 06:59 14:59 Intake Total 0 80 160 Output Total 100 Balance 0 -20 160 Intake: IV 80 160 saline flush 80 160 Oral 0 Output: Urine 100 Other: Voiding Method Indwelling Catheter Indwelling Catheter Weight 80 kg Patient is lying comfortably on the bed not in respiratory distress. Thrombosis Risk Factor Assmnt - Choose All That Apply Any of the Below Risk Factors Present?: Yes Each Factor Represents 1 point: Swollen legs (current) Other Risk Factors: Yes Each Risk Factor Represents 2 Points: Age 61-74 years, Patient confined to bed Thrombosis Risk Factor Assessment Total Risk Factor Score: 5 Thrombosis Risk Factor Assessment Level: High Risk Assessment and Plan Plan: General inpatient hospice: Continue with Ativan when necessary, IV morphine for comfort. For rest of his medical problems that were managed during previous hospitalization please refer to documentation from previous hospitalization.
[2017-03-14] MEDS: MORPHINE SULFATE (100 MG/2 ML) 100 MG in SODIUM CHLORIDE 0.9% 100 ML IV SCH (03:43)
== END 2017-03-14 05:45 | disposition expired | DRG 544 ==
LOC: 6SEL 15:10 → 5ONC 16:30
PROVIDERS: ADMIT Internal Medicine; ATTEND Internal Medicine
DX: C49.9 Malignant neoplasm of connective and soft tissue, unspecified (principal); E11.42 Type 2 diabetes mellitus with diabetic polyneuropathy; E11.39 Type 2 diabetes mellitus with other diabetic ophthalmic complication; I10 Essential (primary) hypertension; F32.9 Major depressive disorder, single episode, unspecified; E78.5 Hyperlipidemia, unspecified; F17.200 Nicotine dependence, unspecified, uncomplicated; H40.9 Unspecified glaucoma; K21.9 Gastro-esophageal reflux disease without esophagitis; M10.9 Gout, unspecified; K57.90 Diverticulosis of intestine, part unspecified, without perforation or abscess without bleeding; Z79.4 Long term (current) use of insulin; Z79.899 Other long term (current) drug therapy; Z85.47 Personal history of malignant neoplasm of testis; Z85.528 Personal history of other malignant neoplasm of kidney; Z82.49 Family history of ischemic heart disease and other diseases of the circulatory system